=== PATIENT | female | born 1990 | race Caucasian/White ===

== ENCOUNTER → 2019-02-11 | Outpatient (CLI) | payer OTHER | LOC: LAB FS 15:07 | PROVIDERS: ATTEND Family Medicine | DX: Z34.80 Encounter for supervision of other normal pregnancy, unspecified trimester (principal); Z3A.00 Weeks of gestation of pregnancy not specified | CPT/HCPCS: 36415; 84702 ==

== ENCOUNTER 2019-05-19 14:25 | Emergency (ER) | payer BC, OTHER ==
[~2019-05-19] VITALS: Ht 165 cm; Wt 65.6 kg
--- NOTE | 2019-05-19 14:53 | ED Upper Extremity ---
General Chief Complaint: Upper Extremity Stated Complaint: RT ARM INJ Source: patient, family History of Present Illness Date Seen by Provider: May 19, 2019 Time Seen by Provider: 14:37 Initial Comments 29-year-old female presents with injury to her right forearm on the ulnar aspect. Patient was trying to grab a 5 yr old niece and lost her balance and struck the island and fell in the kitchen and sustained injury to the mid shaft right ulna area. She has pain going down into the fourth and fifth rays and also has pain going up into the elbow. No obvious deformity but clinical presentation is consistent with a fracture she denies any head or neck trauma no loss of consciousness the patient admits that she is 22 weeks . Imaging will be done with shielding. Patient has given informed consent for diagnostic and therapeutic services. No history of cardiac pulmonary GI or renal disease patient is 2 para 1 son and are with her. Onset: just prior to arrival Severity: moderate Pain/Injury Location: right forearm Method of Injury: fell Modifying Factors: Improves With Movement Allergies and Home Medications Allergies Coded Allergies: No Known Drug Allergies (Unverified , 05/19/19) Patient Home Medication List Home Medication List Reviewed: Yes Review of Systems Constitutional: other (marked pain mid shaft ulnar aspect right forearm) EENTM: no symptoms reported Respiratory: no symptoms reported Cardiovascular: no symptoms reported Gastrointestinal: no symptoms reported Genitourinary: other (22 week intrauterine ) : Yes Expected Date of Delivery: August 24, 2019 LMP: Dec 16, 2018 Musculoskeletal: joint pain, muscle weakness (right midshaft forearm) Skin: no symptoms reported Psychiatric/Neurological: Anxiety Past Vpsqmgp-Igqrnt-Xaykkl Hx Patient Social History Alcohol Use: Denies Use Recreational Drug Use: No Smoking Status: Never a Smoker 2nd Hand Smoke Exposure: No Recent Hopitalizations: No Seasonal Allergies Seasonal Allergies: Yes Past Medical History Surgeries: Yes Section, Tonsillectomy Respiratory: No Cardiac: No Neurological: No Genitourinary: No Gastrointestinal: No Musculoskeletal: No Endocrine: No HEENT: No Cancer: No Psychosocial: No Integumentary: No Blood Disorders: No Adverse Reaction/Blood Tranf: No Family Medical History Reviewed Nursing Family Hx Physical Exam Vital Signs Vital Signs - First Documented 05/19/19 14:28 Temp 36.3 Pulse 86 Resp 14 B/P (MAP) 127/60 (82) Pulse Ox 99 Capillary Refill : Height, Weight, BMI Height: '" Weight: lbs. oz. kg; BMI Method: General Appearance: WD/WN, moderate distress HEENT: PERRL/EOMI, normal ENT inspection, pharynx normal Neck: non-tender, full range of motion, supple, normal inspection Cardiovascular: regular rate, rhythm, no edema, no gallop, no JVD, no murmur Respiratory: chest non-tender, lungs clear, normal breath sounds, no re spiratory distress, no accessory muscle use Gastrointestinal: normal bowel sounds, non tender, soft, no organomegaly, no pulsatile mass Back: normal inspection, no CVA tenderness, no vertebral tenderness Shoulder: normal inspection, non-tender, no evidence of injury, normal ROM Elbow/Forearm: Right, bone tenderness, limited ROM (capillary refill less than 1 second has pain of the ulnar mid shaft area radiating to the wrist and to the elbow) Wrist: Yes bone tenderness, Yes pain (right side) Hand: Right, bone tenderness, limited ROM (secondary to pain in the mid ulna radiating to the wrist and hand and elbow) Neurologic/Tendon: motor deficit (right forearm), sensory deficit (right forearm) 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 Patient can supinate and pronate but has some discomfort open close her hand rotator wrist and 360 and then extend her elbow. FINDINGS: No acute fracture or dislocation is seen in the right forearm. Alignment is normal. There is no right elbow joint effusion. Joint spaces are preserved. IMPRESSION: 1. No acute osseous abnormality seen in the right forearm. Departure Impression Primary Impression: Contusion, forearm and elbow Disposition: 01 HOME, SELF-CARE Condition: Stable Departure-Patient Inst. Decision time for Depature: 15:39 Referrals: KIKE RODRIGUEZ MD (PCP/Family) Primary Care Physician Patient Instructions: Contusion (DC), Muscle Strain (DC) DEMETRIO ORTEGA DO May 19, 2019 14:53
--- NOTE | 2019-05-19 15:17 | Diagnostic Imaging Report ---
INDICATION: Right forearm trauma. TECHNIQUE: Two views of the right forearm. COMPARISON: None FINDINGS: No acute fracture or dislocation is seen in the right forearm. Alignment is normal. There is no right elbow joint effusion. Joint spaces are preserved. IMPRESSION: 1. No acute osseous abnormality seen in the right forearm. Dictated by: Dictated on workstation # [id number]
[2019-05-19 15:47] VITALS: BP 113/54
== END 2019-05-19 15:48 | disposition home or self-care (01) ==
LOC: EDUNIT# 14:25 → ER FS 14:26
DX: S50.11XA Contusion of right forearm, initial encounter (principal); Z90.89 Acquired absence of other organs; W01.198A Fall on same level from slipping, tripping and stumbling with subsequent striking against other object, initial encounter; Y92.000 Kitchen of unspecified non-institutional (private) residence as the place of occurrence of the external cause
CPT/HCPCS: 73090

== ENCOUNTER → 2019-07-01 | Outpatient (CLI) | payer BC ==
[2019-07-01 10:35] LABS: HEMATOCRIT 36 % (35-52); HEMOGLOBIN 11.7 G/DL (11.5-16.0); MEAN CORPUSCULAR HEMOGLOBIN 30 PG (25-34); MEAN CORPUSCULAR HGB CONC 33 G/DL (32-36); MEAN CORPUSCULAR VOLUME 93 FL (80-99); WHITE BLOOD COUNT 10.6 10^3/uL (4.3-11.0)
[2019-07-01 10:36] LABS: MEAN PLATELET VOLUME 9.8 FL (7.4-10.4); PLATELET COUNT 285 10^3/uL (130-400)
[2019-07-01 10:37] LABS: BASOPHILS % (AUTO) 0 % (0-10); EOSINOPHILS % (AUTO) 0 % (0-10); LYMPHOCYTES # (AUTO) 1.8 X 10^3 (1.0-4.0); LYMPHOCYTES % (AUTO) 17 % (12-44); MONOCYTES # (AUTO) 0.5 X 10^3 (0.0-1.0); MONOCYTES % (AUTO) 4 % (0-12); NEUTROPHILS # (AUTO) 8.3 X 10^3 (1.8-7.8); NEUTROPHILS % (AUTO) 78 % (42-75)
== END ==
LOC: LAB FS 09:24
PROVIDERS: ATTEND Family Medicine
DX: Z34.80 Encounter for supervision of other normal pregnancy, unspecified trimester (principal); Z3A.00 Weeks of gestation of pregnancy not specified
CPT/HCPCS: 36415; 82950; 85025; 86780

== ENCOUNTER → 2019-07-17 | Outpatient (CLI) | payer BC | LOC: LAB FS 08:52 | PROVIDERS: ATTEND Family Medicine | DX: R73.09 Other abnormal glucose (principal); Z53.8 Procedure and treatment not carried out for other reasons | CPT/HCPCS: 36415; 82951; 82952 ==

== ENCOUNTER 2019-09-11 12:23 | Outpatient (RCR) | payer BC ==
[~2019-09-11] VITALS: Ht 162.6 cm; Wt 67.7 kg
[2019-09-11] MEDS ORDERED: CETI10TA21 PO (14:31)
[2019-09-11] MEDS ORDERED: METF-399 PO (14:31)
[2019-09-11] MEDS ORDERED: SERT50TA9 PO (14:31)
[2019-09-11] MEDS ORDERED: MONT10TA26 PO (14:31)
[2019-09-11] MEDS ORDERED: ONDA4TAB11 PO (14:31)
== END 2019-09-11 14:34 | disposition home or self-care (01) ==
LOC: PREOP 12:23
PROVIDERS: ATTEND Obstetrics & Gynecology
DX: Z01.818 Encounter for other preprocedural examination (principal); Z11.59 Encounter for screening for other viral diseases
CPT/HCPCS: 87635

== ENCOUNTER 2019-09-13 06:59 | Inpatient (IN) | payer BC, MEDICAID ==
[2019-09-13] VITALS (13 sets, daily range): BP systolic 98–144; BP diastolic 66–88
[~2019-09-13] VITALS: Ht 162.6 cm; Wt 67.6 kg
[~2019-09-13 06:59] MED LIST: CETI10TA21 PO; METF-399 PO; MONT10TA26 PO; ONDA4TAB11 PO; SERT50TA9 PO
--- NOTE | 2019-09-13 07:07 | NUR ---
JANAY MANN presented to unit via AMB from HOME, accompanied by SPOUSE, with c/o REPEAT . JANAY MANN weighed, gowned, voided, and to bed. EFHM and TOCO applied, VS taken. JANAY MANN oriented to bed controls, call light, TV, heat, and A/C controls.
[2019-09-13] MEDS ORDERED: ceFAZolin INJECTION 1,000 MG in WATER (STERILE) FOR INJECTION 10 ML IV ONE (07:15)
--- NOTE | 2019-09-13 07:25 | NUR ---
INFORMED CONSENT FOR SECTION SIGNED/WITNESSED.
--- NOTE | 2019-09-13 07:26 | History & Physical-OB ---
OB - Chief Complaint & HPI Date/Time Date of Admission: Date of Admission: September 13, 2019 at 06:59 Date seen by a Provider: September 13, 2019 Time Seen by a Provider: 08:10 Chief Complaint/History OB-Reason for Admission/Chief: Section Hx : 4 Hx Para: 1 Expected Date of Delivery: September 22, 2019 Gestational Age in Weeks: 38 Gestational Age in Days: 5 Indication for : desires repeat Admission Nurse Assessment Rev: Yes History of Labs see prenatals Allergies and Home Medications Allergies Coded Allergies: No Known Drug Allergies (Unverified , 05/19/19) Home Medications Cetirizine HCl 10 Mg Tablet, 10 MG PO DAILY, (Reported) Metformin HCl 1,000 Mg Tablet, 1,000 MG PO BID, (Reported) Montelukast Sodium 10 Mg Tablet, 10 MG PO HS, (Reported) Ondansetron 4 Mg Tab.rapdis, 4 MG PO TID PRN for NAUSEA/VOMITING, (Reported) Sertraline HCl 50 Mg Tablet, 50 MG PO HS, (Reported) Patient Home Medication List Home Medication List Reviewed: Yes OB - History Hx of Present Care: Yes Ultrasounds: Normal mid trimester US Obstetrical Complications: Gestational Diabetes (on metformin) Medical Complications: None Delivery History Adverse Rxn to Tranfusion: No Patient Past Medical History n/a Social History/Family History 2nd Hand Smoke Exposure: No OB - Admission Exam Physical Exam HEENT: NCAT Heart: Rhythm Normal Lungs: Clear Abdomen: Gravid Extremities: Normal Reflexes: Normal Cervical Dilatation: 1cm Effacement: 50% Station: -3 Membranes: Intact Heart Rate: 130's Accelerations: Accelerations Present Decelerations: No Decelerations Short Term Variability: Present 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
[2019-09-13] MEDS ORDERED: OXYTOCIN PRE-MIX DRIP 500 ML IV SCH (07:27)
[2019-09-13] MEDS ORDERED: TETANUS,DIPTH,PERTUSS P/F (BOOSTRIX) 0.5 ML VIAL IM SCH (07:30)
[2019-09-13] MEDS ORDERED: MEASLES,MUMPS,RUBELLA 1 EA INJ SC SCH (07:30)
[2019-09-13] MEDS ORDERED: ONDANSETRON 4 MG/2 ML (SDV) Z0FRAN IVP PRN (07:30)
--- NOTE | 2019-09-13 07:34 | Discharge Inst-Women's Service ---
Discharge Inst-Women's Serv Depart Medication/Instructions New, Converted or Re-Newed RX: RX on Chart Final Diagnosis POD 2 RLTCS Problems Reviewed?: Yes Consults/Follow Up Additional Follow Up: Yes Orders/Referrals Dr. Lopez in 7-[address] Thurston in 6 weeks Activity Activity: Activity as Tolerated Driving Instructions: No Driving for 1 Week NO SMOKING: NO SMOKING Nothing Inside Vagina: No Douching, No [place], No Tampons Diet Discharge Diet: No Restrictions Symptoms to Report to : Bleeding Excessive, Pain Increased, Fever Over 101 Degrees F, Vaginal Bleeding Increase, Questions/Concerns For Any Problems or Questions: Contact Your Physician Skin/Wound Care Infection Signs and Symptoms: Increased Redness, Foul Odor of Wound, Increased Drainage, Skin Itchy or Has a Rash, Increased Swelling, Temperature Above 101 F Operative Area Clean and Dry: Keep Incision Clean/Dry Stitches/[place]/Dermabond: Dermabond, Care of Stitches Bathing Instructions: MICHAEL Martin DO September 13, 2019 07:34
[2019-09-13] MEDS ORDERED: HYDR-83 PO (07:36)
[2019-09-13] MEDS ORDERED: IBUP-844 PO (07:36)
[2019-09-13] MEDS ORDERED: DCS100C PO (07:36)
--- NOTE | 2019-09-13 07:37 | NUR ---
MRSA SWAB PERFORMED.
--- NOTE | 2019-09-13 07:37 | NUR ---
FSBS 81 MGS/DL.
[2019-09-13] MEDS: LACTATED RINGERS 1,000 ML IV SCH ×2 (07:47→08:23)
--- NOTE | 2019-09-13 07:47 | NUR ---
IV STARTED. BLOOD DRAWN FOR LABS. SEE INTERVENTION.
--- NOTE | 2019-09-13 07:50 | NUR ---
EMI HANLEY GOVERNMENT CLERK HERE TO TALK TO PT.
--- NOTE | 2019-09-13 07:55 | NUR ---
COVID TEST NEGATIVE.
[2019-09-13] MEDS ORDERED: FAMOTIDINE 20MG/2ML IV (PEPCID) ONE (08:00)
[2019-09-13] MEDS ORDERED: METOCLOPRAMIDE INJ 10 MG/2 ML (REGLAN) ONE (08:00)
[2019-09-13] MEDS ORDERED: CITRIC ACID/SOB CIT (BICITRA) 30 ML UDC ONE (08:00)
[2019-09-13] MEDS ORDERED: WATER (STERILE) FOR INJECTION 10 ML ONE (08:05)
[2019-09-13] MEDS ORDERED: ceFAZolin INJECTION 1,000 MG ONE (08:05)
[2019-09-13 08:08] LABS: BASOPHILS % (AUTO) 0 % (0-10); EOSINOPHILS # (AUTO) 0.1 10^3/uL (0.0-0.3); EOSINOPHILS % (AUTO) 1 % (0-10); HEMATOCRIT 37 % (35-52); HEMOGLOBIN 12.5 G/DL (11.5-16.0); LYMPHOCYTES # (AUTO) 1.9 X 10^3 (1.0-4.0); LYMPHOCYTES % (AUTO) 23 % (12-44); MEAN CORPUSCULAR HGB CONC 34 G/DL (32-36); MEAN CORPUSCULAR VOLUME 90 FL (80-99); MEAN PLATELET VOLUME 10.9 FL (7.4-10.4); MONOCYTES # (AUTO) 0.7 X 10^3 (0.0-1.0); MONOCYTES % (AUTO) 9 % (0-12); NEUTROPHILS # (AUTO) 5.5 X 10^3 (1.8-7.8); NEUTROPHILS % (AUTO) 67 % (42-75); PLATELET COUNT 234 10^3/uL (130-400); RED CELL DISTRIBUTION WIDTH 14.2 % (10.0-14.5); WHITE BLOOD COUNT 8.2 10^3/uL (4.3-11.0)
[2019-09-13 08:09] LABS: MEAN CORPUSCULAR HEMOGLOBIN 30 PG (25-34)
--- NOTE | 2019-09-13 08:23 | NUR ---
PABLO READING DATA COMMUNICATIONS ANALYST IN TO SEE PT.
[2019-09-13] MEDS ORDERED: ONDANSETRON 4 MG/2 ML (SDV) Z0FRAN ONE (08:24)
[2019-09-13] MEDS ORDERED: OXYTOCIN PRE-MIX DRIP 1,000 ML IV ONE (08:24)
[2019-09-13] MEDS ORDERED: fentaNYL INJECTION 100 MCG/2 ML AMP ONE (08:25)
--- NOTE | 2019-09-13 08:27 | NUR ---
PREOP MEDS GIVEN.
--- NOTE | 2019-09-13 08:41 | NUR ---
EFM OFF. AUDIT MGR HERE. UP TO THE BATHROOM.
--- NOTE | 2019-09-13 08:44 | NUR ---
TO [facility]OR AMBULATORY IN STABLE CONDITION ACC BY PROCESSING ENGINEER FOR A REPEAT SECTION BY DR. LÓPEZ.
[2019-09-13] MEDS ORDERED: KETOROLAC 30 MG/ML VIAL ONE (09:12)
[2019-09-13] MEDS ORDERED: BUPIVACAINE 0.25% 30 ML (SENSORCAINE) VIAL ONE (09:13)
--- OUTSIDE RECORDS SUMMARY | 2019-09-13 09:15 | XMS REPORT ---
Author Author Gracie Galicia Organization [facility] Address [address] [place] [address] Care Team Providers Care Transit Bus Operator Name Role Phone ADEBAYO Galicia Unavailable PROBLEMS Type Condition ICD9-CM Code VNP70-PK Code Onset Dates Condition S tatus SNOMED Code Problem Depression, unspecified depression type F32.9 Active 49725940 Problem Fibrocystic breast changes, unspecified laterality N60.19 Active 18746716 Problem Allergic rhinitis J30.9 Active 61 385154 Problem Seasonal allergic rhinitis, unspecified trigger J3 0.2 Active [id number] ALLERGIES No Information ENCOUNTERS Encounter Location Date Diagnosis [facility] WALK IN [facility] [address] [facility] [place] [address] May, Influenza-like syndrome J11. 1 ; Exposure to influenza Z20.828 ; Sore throat J02.9 and Fever R50.[address] [place] [address] Apr, Supervision of other normal Z34.[address] [place] [address] Apr, Supervision of other normal Z34.80 [facility] [address] [id number] [place] [address] Apr, [address] [place] [address] Mar, Supervision of other normal Z34.80 and 15 weeks gestation of Z3A.[address] [place] [address] Mar, [address] [place] [address] Feb, Supervision of other normal Z34.80 and 11 weeks gestation of Z3A.11 [facility] [address] [place] [address] Feb, [facility] [address] [place] [address] Jan, [facility] [address] [place] [address] Jan, [facility] [address] [place] [address] Jan, Supervision of other normal Z34.80 and with uncertain date of last menstrual period in first trimester, antepartum Z34.91 [facility] [address] [place] [address] Jan, Supervision of other normal Z34.80 [facility] [address] [place] [address] Jan, Supervision of other normal Z34.80 and with uncertain date of last menstrual period in first trimester, antepartum Z34.91 [facility] [address] [place] [address] Jan, [facility] [address] [place] [address] Jan, [facility] [address] [place] [address] Dec, Less than 8 weeks gestation of Z3A.01 [facility] [address] [place] [address] Dec, Less than 8 weeks gestation of Z3A.01 and Acute sinusitis, unspecified J01.90 [facility] [address] [place] [address] Dec, Acute sinusitis, unspecified J01.90 and Other specified bacterial agents as the cause of diseases classified elsewhere B96.89 [facility] [address] [place] [address] Nov, [facility] [address] [facility] [place] [address] Nov, [facility] [address] [place] [address] Oct, [facility] [address] [facility] [place] [address] Sep, Fibrocystic breast changes, unspecified laterality N60.19 [facility] [address] [facility] [place] [address] Sep, Nipple pain N64.4 [facility] [address] [place] [address] Sep, Nipple pain N64.4 [facility] [address] [facility] [place] [address] August, Fungal infection of skin B36 .9 and Nipple pain N64.4 [facility] [address] [facility] [place] [address] August, Seasonal allergic rhinitis, unspecified trigger J30.2 and Weight gain R63.5 [facility] [address] [place] [address] August, [facility] [address] [place] [address] August, Allergic rhinitis J30.9 [facility] [address] [place] [address] Jul, Pre-employment health screen ing examination Z02.1 [facility] [address] [place] [address] Jul, Allergic rhinitis J30.9 [facility] [address] [place] [address] [facility] [id number] [place] [address] Feb, Abdomen enlarged R19.8 [facility] [address] [id number] [place] [address] 14 Jul, 2014 [facility] [address] [id number] [place] [address] Jul, [facility] [address] [id number] [place] [address] Mar, [facility] [place] [address] [facility] [place] [place] [address] Mar, [facility] [place] [address] [facility] [place] [address] Feb, 14 [facility] [address] [id number] [place] [address] Feb, [facility] [address] [id number] [place] [address] Dec, [facility] [address] [id number] [place] [address] Dec, [facility] [address] [id number] [place] [address] Dec, [facility] [address] [id number] [place] [address] Dec, [facility] [address] [id number] [place] [address] Dec, [facility] [address] [id number] [place] [address] Dec, [facility] [address] [id number] [place] [address] Dec, [facility] [address] [id number] [place] [address] Oct, [facility] [address] [id number] [place] [address] Oct, [facility] [address] [id number] [place] [address] August, [facility] [address] [id number] [place] [address] August, [facility] [place] [address] [place] [address] Jul, [facility] [address] [id number] [place] [address] Jul, [facility] [address] [id number] [place] [address] Jun, [facility] [id number] [place] [address] Jun, [facility] [address] [id number] [place] [address] Jun, [facility] [address] [id number] [place] [address] Jan, [facility] [address] [id number] [place] [address] Jan, [facility] [id number] [place] [address] Jan, [facility] [address] [id number] [place] [address] 14 Dec, 2011 [facility] [address] [id number] [place] [address] 13 Dec, 2011 [facility] [address] [id number] [place] [address] 11 Dec, 2011 [facility] [address] [id number] [place] [address] 07 Dec, 2011 [facility] [address] [id number] [place] [address] 05 Dec, 2011 [facility] [address] [id number] [place] [address] Dec, [facility] [id number] [place] [address] Nov, [facility] [address] [id number] [place] [address] Nov, [facility] [id number] [place] [address] Oct, [facility] [address] [id number] [place] [address] 13 Jun, 2011 [facility] [address] [id number] [place] [address] 12 Jun, 2011 [facility] [address] [id number] [place] [address] 10 Jun, 2011 [facility] [id number] [place] [address] 07 Jun, 2011 [facility] [address] [id number] [place] [address] Feb, [facility] [id number] [place] [address] Feb, [facility] [address] [id number] [place] [address] 15 Jun, 2010 IMMUNIZATIONS No Known Immunizations SOCIAL HISTORY Never Assessed REASON FOR VISIT PLAN OF CARE VITAL SIGNS Height 64 in 2013-08-05 Weight 104 lbs 2013-08-05 Temperature 98.6 degrees Fahrenheit 2013-08-05 Heart Rate 76 bpm 2013-08-05 Respiratory Rate 16 2013-08-05 Blood pressure systolic 114 mmHg 2013-08-05 Blood pressure diastolic 64 mmHg 2013-08-05 MEDICATIONS No Known Medications RESULTS No Results PROCEDURES No Known procedures INSTRUCTIONS MEDICATIONS ADMINISTERED No Known Medications MEDICAL (GENERAL) HISTORY Type Description Date Medical History depression Medical History seasonal allergies Surgical History tonsillectomy and adenoidectomy Surgical History section Surgical History dilatation and curettage Surgical History dental / child Hospitalization History see surgeries Hospitalization History childbirth only
--- OUTSIDE RECORDS SUMMARY | 2019-09-13 09:15 | XMS REPORT ---
Author Author Gracie Harris Organization [facility] Address [address] [place] [address] Care Team Providers Care Campaign Director Name Role Phone KURTIS Harris Unavailable PROBLEMS Type Condition ICD9-CM Code LLL09-OA Code Onset Dates Condition S tatus SNOMED Code Problem Depression, unspecified depression type F32.9 Active 75707493 Problem Fibrocystic breast changes, unspecified laterality N60.19 Active 17792630 Problem Allergic rhinitis J30.9 Active 61 335516 Problem Seasonal allergic rhinitis, unspecified trigger J3 0.2 Active 032034416 ALLERGIES No Information ENCOUNTERS Encounter Location Date Diagnosis [address] [id number], [place] [address] Jun, Acute non-recurrent maxillar y sinusitis J01.00 [facility] [address] [id number], [place] [address] 02 May, 2019 Influenza-like syndrome J11. 1 ; Exposure to influenza Z20.828 ; Sore throat J02.9 and Fever R50.[address] [id number], [place] [address] Apr, Supervision of other normal Z34.[address] [id number], [place] [address] Apr, Supervision of other normal Z34.80 [facility] [address] [facility] [id number] [address] [place] [address] Apr, [address] [id number], [place] [address] Mar, Supervision of other normal Z34.80 and 15 weeks gestation of Z3A.15 [facility] [address] [id number] [place] [address] Mar, [facility] [address] [id number] [place] [address] Feb, Supervision of other normal Z34.80 and 11 weeks gestation of Z3A.11 [facility] [address] [id number] [place] [address] Feb, [facility] [address] [id number] [place] [address] Jan, [facility] [address] [id number] [place] [address] Jan, [facility] [address] [id number] [place] [address] Jan, Supervision of other normal Z34.80 and with uncertain date of last menstrual period in first trimester, antepartum Z34.91 [facility] [address] [id number] [place] [address] Jan, Supervision of other normal Z34.80 [facility] [address] [id number] [place] [address] Jan, Supervision of other normal Z34.80 and with uncertain date of last menstrual period in first trimester, antepartum Z34.91 [facility] [address] [id number] [place] [address] Jan, [facility] [address] [id number] [place] [address] Jan, [facility] [address] [id number] [place] [address] Dec, Less than 8 weeks gestation of Z3A.01 [facility] [address] [id number] [place] [address] Dec, Less than 8 weeks gestation of Z3A.01 and Acute sinusitis, unspecified J01.90 [facility] [address] [id number] [place] [address] Dec, Acute sinusitis, unspecified J01.90 and Other specified bacterial agents as the cause of diseases classified elsewhere B96.89 [facility] [address] [id number] [place] [address] Nov, [facility] [address] [id number] [place] [address] Nov, [facility] [address] [id number] [place] [address] Oct, [facility] [address] [id number] [place] [address] Sep, Fibrocystic breast changes, unspecified laterality N60.19 [facility] [address] 340[address] [id number] [place] [address] Sep, Nipple pain N64.4 [facility] [address] 340[address] [id number] [place] [address] Sep, Nipple pain N64.4 [facility] [address] [id number] [place] [address] August, Fungal infection of skin B36 .9 and Nipple pain N64.4 [facility] [address] [id number] [place] [address] August, Seasonal allergic rhinitis, unspecified trigger J30.2 and Weight gain R63.5 [facility] [address] 340[address] [id number] [place] [address] August, [facility] [address] [id number] [place] [address] August, Allergic rhinitis J30.9 [facility] [address] [id number] [place] [address] Jul, Pre-employment health screen ing examination Z02.1 [facility] [address] [id number] [place] [address] Jul, Allergic rhinitis J30.9 [facility] [address] [place] [address] [facility] [id number] [place] [address] 08 Feb, 2018 Abdomen enlarged R19.8 [facility] [address] [facility] [id number] [address] [place] [address] 14 Jul, 2014 [facility] [address] [facility] [id number] [address] [place] [address] Jul, [facility] [address] [facility] [id number] [address] [place] [address] Mar, [facility] [place] [address] [place] [address] Mar, 14 [facility] [address] [place] [address] Feb, 14 [facility] [address] [facility] [id number] [address] [place] [address] Feb, [facility] [address] [facility] [id number] [address] [place] [address] Dec, [facility] [address] [facility] [id number] [address] [place] [address] 23 Dec, 2013 [facility] [address] [facility] [id number] [address] [place] [address] 22 Dec, 2013 [facility] [address] [id number] [address] [place] [address] 18 Dec, 2013 [facility] [address] [id number] [address] [place] [address] 18 Dec, 2013 [facility] [address] [facility] [id number] [address] [place] [address] Dec, [facility] [address] [facility] [id number] [address] [place] [address] Dec, [facility] [address] [id number] [address] [place] [address] Oct, [facility] [address] [id number] [address] [place] [address], [place] [address] Oct, [facility] [address] [id number] [address] [place] [address], [place] [address] August, [facility] [address] [id number] [address] [place] [address], [place] [address] August, [facility] [place] [address] [facility] [place] [address] Jul, [facility] [address] [id number] [address] [place] [address], [place] [address] Jul, [facility] [address] [id number] [address] [place] [address], [place] [address] Jun, [facility] [address] [id number] [address] [place] [address], [place] [address] Jun, [facility] [address] [id number] [address] [place] [address], [place] [address] Jun, [facility] [address] [id number] [address] [place] [address], [place] [address] Jan, [facility] [address] [id number] [address] [place] [address], [place] [address] Jan, [facility] [address] [id number] [address] [place] [address], [place] [address] 09 Jan, 2012 [facility] [address] [id number] [address] [place] [address] 14 Dec, 2011 [facility] [address] [id number] [address] [place] [address], [place] [address] 13 Dec, 2011 [facility] [address] [id number] [address] [place] [address], [place] [address] 11 Dec, 2011 [facility] [address] [id number] [address] [place] [address], [place] [address] 07 Dec, 2011 [facility] [address] [id number] [address] [place] [address] 05 Dec, 2011 [facility] [address] [id number] [address] [place] [address] Dec, [facility] [address] [id number] [address] [place] [address] Nov, [facility] [address] [id number] [address] [place] [address] Nov, [facility] [address] [id number] [address] [place] [address] Oct, [facility] [address] [id number] [address] [place] [address] Jun, [facility] [address] [id number] [address] [place] [address] Jun, [facility] [address] [id number] [address] [place] [address] Jun, [facility] [address] [id number] [address] [place] [address] Jun, [facility] [address] [id number] [address] [place] [address] Feb, [facility] [address] [id number] [address] [place] [address] Feb, [facility] [address] [id number] [address] [place] [address] 15 Jun, 2010 IMMUNIZATIONS No Known Immunizations SOCIAL HISTORY Never Assessed REASON FOR VISIT PLAN OF CARE VITAL SIGNS MEDICATIONS No Known Medications RESULTS No Results PROCEDURES Procedure Date Ordered Result Body Site COMPLETE CBC W/AUTO DIFF WBC Jan 09, 2014 ASSAY THYROID STIM HORMONE Jan 09, 2014 LIPID PANEL Jan 09, 2014 COMPREHEN METABOLIC PANEL Jan 09, 2014 VENIPUNCT, ROUTINE* Jan 09, 2014 INSTRUCTIONS MEDICATIONS ADMINISTERED No Known Medications MEDICAL (GENERAL) HISTORY Type Description Date Medical History depression Medical History seasonal allergies Surgical History tonsillectomy and adenoidectomy Surgical History section Surgical History dilatation and curettage Surgical History dental / child Hospitalization History see surgeries Hospitalization History childbirth only
--- OUTSIDE RECORDS SUMMARY | 2019-09-13 09:15 | XMS REPORT ---
Author Author Gracie HUDSON Organization [facility] Address [address] [place] [address] Care Team Providers Care [employer] Wiring Technician Name Role Phone RADHA HUDSON Unavailable PROBLEMS Type Condition ICD9-CM Code LYV04-YM Code Onset Dates Condition S tatus SNOMED Code Problem Depression, unspecified depression type F32.9 Active 42565374 Problem Fibrocystic breast changes, unspecified laterality N60.19 Active 57359629 Problem Allergic rhinitis J30.9 Active 61 600086 Problem Seasonal allergic rhinitis, unspecified trigger J3 0.2 Active 553364947 ALLERGIES No Information ENCOUNTERS Encounter Location Date Diagnosis [facility] IN [facility] [address] [facility] [address] [place] [address] 02 May, 2019 Influenza-like syndrome J11. 1 ; Exposure to influenza Z20.828 ; Sore throat J02.9 and Fever R50.[address] [place] [address] Apr, Supervision of other normal Z34.80 [address] [place] [address] Apr, Supervision of other normal Z34.80 [facility] [address] [facility] [place] [address] Apr, [address] [place] [address] Mar, Supervision of other normal Z34.80 and 15 weeks gestation of Z3A.[address] [place] [address] Mar, [address] [place] [address] Feb, Supervision of other normal Z34.80 and 11 weeks gestation of Z3A.11 [facility] [address] [place] [address] Feb, [facility] [address] [place] [address] Jan, [facility] [address] [place] [address] Jan, [facility] [address] [place] [address] Jan, Supervision of other normal Z34.80 and with uncertain date of last menstrual period in first trimester, antepartum Z34.91 [facility] [address] [place] [address] Jan, Supervision of other normal Z34.80 [facility] [address] [place] [address] Jan, Supervision of other normal Z34.80 and with uncertain date of last menstrual period in first trimester, antepartum Z34.91 [facility] [address] [place] [address] Jan, [facility] [address] [place] [address] Jan, [facility] [address] [place] [address] Dec, Less than 8 weeks gestation of Z3A.01 [facility] [address] [place] [address] Dec, Less than 8 weeks gestation of Z3A.01 and Acute sinusitis, unspecified J01.90 [facility] [address] [place] [address] Dec, Acute sinusitis, unspecified J01.90 and Other specified bacterial agents as the cause of diseases classified elsewhere B96.89 [facility] [address] [place] [address] Nov, [facility] [address] [place] [address] Nov, [facility] [address] [place] [address] Oct, [facility] [address] [place] [address] Sep, Fibrocystic breast changes, unspecified laterality N60.19 [facility] [address] [place] [address] Sep, Nipple pain N64.4 [facility] [address] [place] [address] Sep, Nipple pain N64.4 [facility] [place] [address] [place] [address] August, Fungal infection of skin B36 .9 and Nipple pain N64.4 [facility] [address] [place] [address] August, Seasonal allergic rhinitis, unspecified trigger J30.2 and Weight gain R63.5 [facility] [address] [place] [address] August, [facility] [address] [place] [address] August, Allergic rhinitis J30.9 [facility] [address] [place] [address] Jul, Pre-employment health screen ing examination Z02.1 [facility] [address] [place] [address] Jul, Allergic rhinitis J30.9 [facility] [address] [place] [address] [facility] [place] [id number] [place] [address] Feb, Abdomen enlarged R19.8 [facility] [address] [id number] [place] [address] 14 Jul, 2014 [facility] [address] [id number] [place] [address] Jul, [facility] [address] [id number] [place] [address] Mar, [facility] [place] [address] [place] [address] Mar, [facility] [place] [address] [place] [address] Feb, 14 [facility] [address] [id number] [place] [address] Feb, [facility] [address] [id number] [place] [address] Dec, [facility] [address] [id number] [place] [address] Dec, [facility] [address] [id number] [place] [address] Dec, [facility] [address] [id number] [place] [address] Dec, [facility] [address] [id number] [place] [address] Dec, [facility] [address] [id number] [place] [address] Dec, [facility] [address] [id number] [place] [address] Dec, [facility] [address] [id number] [place] [address] Oct, [facility] [address] [id number] [place] [address] Oct, [facility] [address] [id number] [place] [address] August, [facility] [address] [id number] [place] [address] August, [facility] [place] [address] [facility] [place] [address] Jul, [facility] [address] [id number] [place] [address] Jul, [facility] [address] [id number] [place] [address] Jun, [facility] [id number] [place] [address] Jun, [facility] [address] [id number] [place] [address] Jun, [facility] [address] [id number] [place] [address] Jan, [facility] [address] [id number] [place] [address] Jan, [facility] [id number] [place] [address] Jan, [facility] [address] [id number] [place] [address] 14 Dec, 2011 [facility] [address] [id number] [place] [address] 13 Dec, 2011 [facility] [address] [id number] [place] [address] 11 Dec, 2011 [facility] [address] [id number] [place] [address] 07 Dec, 2011 [facility] [address] [id number] [place] [address] 05 Dec, 2011 [facility] [address] [id number] [place] [address] Dec, [facility] [id number] [place] [address] Nov, [facility] [address] [id number] [place] [address] Nov, [facility] [id number] [place] [address] Oct, [facility] [address] [id number] [place] [address] 13 Jun, 2011 [facility] [address] [id number] [place] [address] 12 Jun, 2011 [facility] [address] [id number] [place] [address] Jun, [facility] [id number] [place] [address] Jun, [facility] [address] [id number] [place] [address] Feb, [facility] [id number] [place] [address] Feb, [facility] [address] [id number] [place] [address] Jun, IMMUNIZATIONS No Known Immunizations SOCIAL HISTORY Never Assessed REASON FOR VISIT PLAN OF CARE VITAL SIGNS Height 64 in 2013-08-28 Weight 108.8 lbs 2013-08-28 Temperature 99.5 degrees Fahrenheit 2013-08-28 Heart Rate 88 bpm 2013-08-28 Respiratory Rate 18 2013-08-28 Blood pressure systolic 118 mmHg 2013-08-28 Blood pressure diastolic 58 mmHg 2013-08-28 MEDICATIONS No Known Medications RESULTS No Results PROCEDURES No Known procedures INSTRUCTIONS MEDICATIONS ADMINISTERED No Known Medications MEDICAL (GENERAL) HISTORY Type Description Date Medical History depression Medical History seasonal allergies Surgical History tonsillectomy and adenoidectomy Surgical History section Surgical History dilatation and curettage Surgical History dental / child Hospitalization History see surgeries Hospitalization History childbirth only
--- OUTSIDE RECORDS SUMMARY | 2019-09-13 09:15 | XMS REPORT ---
Author Author Gracie Mei Organization [facility] Address [address] [place] [address] Care Team Providers Care Compliance Reviewer Name Role Phone YANCI Mei Unavailable PROBLEMS Type Condition ICD9-CM Code XDX42-QU Code Onset Dates Condition S tatus SNOMED Code Problem Depression, unspecified depression type F32.9 Active 51749950 Problem Fibrocystic breast changes, unspecified laterality N60.19 Active 43735678 Problem Allergic rhinitis J30.9 Active 61 430914 Problem Seasonal allergic rhinitis, unspecified trigger J3 0.2 Active 405316738 ALLERGIES No Information ENCOUNTERS Encounter Location Date Diagnosis [address] [place] [id number] [address] Jun, Acute non-recurrent maxillar y sinusitis J01.00 [facility] [address] 340 [id number] [address] 02 May, 2019 Influenza-like syndrome J11. 1 ; Exposure to influenza Z20.828 ; Sore throat J02.9 and Fever R50.[address] [id number], [place] [address] Apr, Supervision of other normal Z34.[address] 340[id number], [place] [address] Apr, Supervision of other normal Z34.80 [facility] [address] [facility] [id number] [address] [place] [address] Apr, [address] [id number], [place] [address] Mar, Supervision of other normal Z34.80 and 15 weeks gestation of Z3A.15 [facility] [address] [id number] [place] [address] Mar, [facility] [address] [id number] [place] [address] Feb, Supervision of other normal Z34.80 and 11 weeks gestation of Z3A.11 [facility] [address] [id number] [place] [address] Feb, [facility] [address] [id number] [place] [address] Jan, [facility] [address] [id number] [place] [address] Jan, [facility] [address] [id number] [place] [address] Jan, Supervision of other normal Z34.80 and with uncertain date of last menstrual period in first trimester, antepartum Z34.91 [facility] [address] [id number] [place] [address] Jan, Supervision of other normal Z34.80 [facility] [address] [id number] [place] [address] Jan, Supervision of other normal Z34.80 and with uncertain date of last menstrual period in first trimester, antepartum Z34.91 [facility] [address] [id number] [place] [address] Jan, [facility] [address] [id number] [place] [address] Jan, [facility] [address] [id number] [place] [address] Dec, Less than 8 weeks gestation of Z3A.01 [facility] [address] [id number] [place] [address] Dec, Less than 8 weeks gestation of Z3A.01 and Acute sinusitis, unspecified J01.90 [facility] [address] 340B [id number] [place] [address] Dec, Acute sinusitis, unspecified J01.90 and Other specified bacterial agents as the cause of diseases classified elsewhere B96.89 [facility] [address] [id number] [place] [address] Nov, [facility] [address] 340[address] [id number] [place] [address] Nov, [facility] [address] 340[address] [id number] [place] [address] Oct, [facility] [address] 340[address] [id number] [place] [address] Sep, Fibrocystic breast changes, unspecified laterality N60.19 [facility] [address] 340B [id number] [place] [address] Sep, Nipple pain N64.4 [facility] [address] 340B [id number] [place] [address] Sep, Nipple pain N64.4 [facility] [address] [id number] [place] [address] August, Fungal infection of skin B36 .9 and Nipple pain N64.4 [facility] [address] 340B [id number] [place] [address] August, Seasonal allergic rhinitis, unspecified trigger J30.2 and Weight gain R63.5 [facility] [address] 340B [id number] [place] [address] August, [facility] [address] [id number] [place] [address] August, Allergic rhinitis J30.9 [facility] [address] [id number] [place] [address] Jul, Pre-employment health screen ing examination Z02.1 [facility] [address] [id number] [place] [address] Jul, Allergic rhinitis J30.9 [facility] [address] [place] [address] [facility] [id number] [place] [address] 08 Feb, 2018 Abdomen enlarged R19.8 [facility] [address] [facility] [id number] [address] [place] [address] 14 Jul, 2014 [facility] [address] [facility] [id number] [address] [place] [address] Jul, [facility] [address] [facility] [id number] [address] [place] [address] Mar, [facility] [place] [address] [place] [address] Mar, 14 [facility] [address] [place] [address] Feb, 14 [facility] [address] [facility] [id number] [address] [place] [address] Feb, [facility] [address] [facility] [id number] [address] [place] [address] Dec, [facility] [address] [facility] [id number] [address] [place] [id number] 23 Dec, 2013 [facility] [address] [facility] [id number] [address] [place] [address] 22 Dec, 2013 [facility] [address] [id number] [address] [place] [address] 18 Dec, 2013 [facility] [address] [id number] [address] [place] [phone] 18 Dec, 2013 [facility] [address] [facility] [id number] [address] [place] [address] Dec, [facility] [address] [facility] [id number] [address] [place] [address] Dec, [facility] [address] [id number] [address] [place] [address] Oct, [facility] [address] [id number] [address] [place] [address], [place] [address] Oct, [facility] [address] [id number] [address] [place] [address], [place] [address] August, [facility] [address] [id number] [address] [place] [address], [place] [address] August, [facility] [place] [address] [facility] [address] Jul, [facility] [address] [id number] [address] [place] [address], [place] [address] Jul, [facility] [address] [id number] [address] [place] [address], [place] [address] Jun, [facility] [address] [id number] [address] [place] [address], [place] [address] Jun, [facility] [address] [id number] [address] [place] [address], [place] [address] Jun, [facility] [address] [id number] [address] [place] [address], [place] [address] Jan, [facility] [address] [id number] [address] [place] [address], [place] [address] Jan, [facility] [address] [id number] [address] [place] [address], [place] [address] 09 Jan, 2012 [facility] [address] [id number] [address] [place] [id number] 14 Dec, 2011 [facility] [address] [id number] [address] [place] [address], [place] [address] 13 Dec, 2011 [facility] [address] [id number] [address] [place] [address], [place] [address] 11 Dec, 2011 [facility] [address] [id number] [address] [place] [address], [place] [address] 07 Dec, 2011 [facility] [address] [id number] [address] [place] [address] 05 Dec, 2011 [facility] [address] [id number] [address] [place] [address] Dec, [facility] [address] [id number] [address] [place] [address] Nov, [facility] [address] [id number] [address] [place] [address] Nov, [facility] [address] [id number] [address] [place] [address] Oct, [facility] [address] [id number] [address] [place] [address] Jun, [facility] [address] [id number] [address] [place] [address] Jun, [facility] [address] [id number] [address] [place] [address] Jun, [facility] [address] [id number] [address] [place] [address] Jun, [facility] [address] [id number] [address] [place] [address] Feb, [facility] [address] [id number] [address] [place] [address] Feb, [facility] [address] [id number] [address] [place] [id number] 15 Jun, 2010 IMMUNIZATIONS No Known Immunizations [...]
--- OUTSIDE RECORDS SUMMARY | 2019-09-13 09:15 | XMS REPORT ---
Author Author Gracie Harris Organization [facility] Address [address] [place] [address] Care Team Providers Care Aircraft Loadmaster Superintendent Name Role Phone KURTIS Harris Unavailable PROBLEMS Type Condition ICD9-CM Code HUY95-ES Code Onset Dates Condition S tatus SNOMED Code Problem Depression, unspecified depression type F32.9 Active 51922027 Problem Fibrocystic breast changes, unspecified laterality N60.19 Active 41589587 Problem Allergic rhinitis J30.9 Active 61 394314 Problem Seasonal allergic rhinitis, unspecified trigger J3 0.2 Active 345543938 ALLERGIES No Information ENCOUNTERS Encounter Location Date Diagnosis [address] [address] Nov, [address] [address] Oct, [address] [address] Sep, Fibrocystic breast changes, unspecified laterality N60.[address] [address] Sep, Nipple pain N64.[address] [address] Sep, Nipple pain N64.[address] [address] August, Fungal infection of skin B36.9 and Nippl e pain N64.[address] [address] August, Seasonal allergic rhinitis, unspecified trigger J30.2 and Weight gain R63.[address] [address] August, [facility] [address] [place] [address] August, Allergic rhinitis J30.9 [facility] [address] [place] [address] Jul, Pre-employment health screening examinat ion Z02.1 [facility] [address] [place] [address] Jul, Allergic rhinitis J30.9 [facility] [address] [place] [address] [place] [address] Feb, 18 Abdomen enlarged R19.8 [facility] [address] [id number] [address] [place] [address] Jul, [facility] [address] [facility] [id number] [address] [place] [address] Jul, [facility] [address] [facility] [id number] [address] [place] [address] Mar, [facility] [place] [address] [place] [address] Mar, 14 [facility] [place] [address] [place] [address] Feb, 14 [facility] [address] [facility] [id number] [address] [place] [address] Feb, [facility] [address] [id number] [address] [place] [address] Dec, [facility] [address] [id number] [address] [place] [address] Dec, [facility] [address] [id number] [address] [place] [address] Dec, [facility] [address] [id number] [address] [place] [address] Dec, [facility] [address] [id number] [address] [place] [address] Dec, [facility] [address] [id number] [address] [place] [address], [place] [address] 11 Dec, 2013 [facility] [address] [id number] [address] [place] [address], [place] [address] Dec, [facility] [address] [id number] [address] [place] [address], [place] [address] Oct, [facility] [address] [id number] [address] [place] [address], [place] [address] Oct, [facility] [address] [id number] [address] [place] [address], [place] [address] August, [facility] [address] [id number] [address] [place] [address], [place] [address] August, [facility] [place] [address] [place] [address] Jul, [facility] [address] [id number] [address] [place] [address], [place] [address] Jul, [facility] [address] [id number] [address] [place] [address], [place] [address] Jun, [facility] [address] [id number] [address] [place] [address], [place] [address] Jun, [facility] [address] [id number] [address] [place] [address], [place] [address] Jun, [facility] [address] [id number] [address] [place] [address], [place] [address] Jan, [facility] [address] [id number] [address] [place] [address], [place] [address] Jan, [facility] [address] [id number] [address] [place] [address], [place] [address] 09 Jan, 2012 [facility] [address] [id number] [address] [place] [address], [place] [address] 14 Dec, 2011 [facility] [address] [id number] [address] [place] [address], [place] [address] 13 Dec, 2011 [facility] [place] [address] [id number] [address] [place] [phone] 11 Dec, 2011 [facility] [place] [address] [id number] [address] [place] [address] 07 Dec, 2011 [facility] [place] [address] [id number] [address] [place] [address] Dec, [facility] [place] [address] [id number] [address] [place] [phone] Dec, [facility] [address] [id number] [address] [place] [phone] Nov, [facility] [place] [address] [id number] [address] [place] [address] Nov, [facility] [address] [id number] [address] [place] [id number] Oct, [facility] [place] [address] [id number] [address] [place] [id number] Jun, [facility] [place] [address] [id number] [address] [place] [address] Jun, [facility] [place] [address] [id number] [address] [place] [phone] Jun, [facility] [place] [address] [id number] [address] [place] [address] Jun, [facility] [place] [address] [id number] [address] [place] [phone] Feb, [facility] [place] [address] [id number] [address] [place] [address] Feb, [facility] [place] [address] [id number] [address] [place] [id number] 15 Jun, 2010 IMMUNIZATIONS No Known Immunizations SOCIAL HISTORY Never Assessed REASON FOR VISIT PLAN OF CARE VITAL SIGNS MEDICATIONS Unknown Medications RESULTS No Results PROCEDURES No Known procedures INSTRUCTIONS MEDICATIONS ADMINISTERED No Known Medications MEDICAL (GENERAL) HISTORY Type Description Date Medical History depression Medical History seasonal allergies Surgical History tonsillectomy and adenoidectomy Surgical History section Surgical History dilatation and curettage Surgical History dental / child Hospitalization History see surgeries Hospitalization History childbirth only
--- OUTSIDE RECORDS SUMMARY | 2019-09-13 09:15 | XMS REPORT ---
Author Author Gracie Mancera Doctor Organization [facility] Address Unknown Phone Unavailable Care Team Providers Care Reptile Keeper Name Role Phone Migration, Doctor Unavailable Unavailable PROBLEMS Type Condition ICD9-CM Code YLF62-ED Code Onset Dates Condition S tatus SNOMED Code Problem Depression, unspecified depression type F32.9 Active 87441300 Problem Fibrocystic breast changes, unspecified laterality N60.19 Active 32989780 Problem Allergic rhinitis J30.9 Active 61 754930 Problem Seasonal allergic rhinitis, unspecified trigger J3 0.2 Active [id number] ALLERGIES No Information ENCOUNTERS Encounter Location Date Diagnosis [address] [address] Oct, [address] [address] Sep, Fibrocystic breast changes, unspecified laterality N60.[address] [address] Sep, Nipple pain N64.[address] [address] Sep, Nipple pain N64.[address] [address] August, Fungal infection of skin B36.9 and Nippl e pain N64.[address] [address] August, Seasonal allergic rhinitis, unspecified trigger J30.2 and Weight gain R63.[address] [address] August, [facility] [address] [place] [facility] [place] [address] August, Allergic rhinitis J30.9 [facility] [address] [place] [facility] [place] [address] Jul, Pre-employment health screening examinat ion Z02.1 [facility] [address] [place] [place] [address] Jul, Allergic rhinitis J30.9 [facility] [address] [place] [address] [place] [address] 08 Feb, 18 Abdomen enlarged R19.8 [facility] [address] [facility] [id number] [address] [place] [address] 14 Jul, 2014 [facility] [address] [facility] [id number] [address] [place] [address] Jul, [facility] [address] [place] [id number] [address] [place] [address] Mar, [facility] [address] [place] [address] Mar, 14 [facility] [address] [place] [address] Feb, 14 [facility] [address] [facility] [id number] [address] [place] [address] Feb, [facility] [address] [facility] [id number] [address] [place] [address] Dec, [facility] [address] [facility] [id number] [address] [place] [address] Dec, [facility] [address] [facility] [id number] [address] [place] [address] 22 Dec, 2013 [facility] [address] [facility] [id number] [address] [place] [address] 18 Dec, 2013 [facility] [address] [facility] [id number] [address] [place] [address] 18 Dec, 2013 [facility] [address] [facility] [id number] [address] [place] [address] Dec, [facility] [address] [facility] [id number] [address] [place] [address] Dec, [facility] [address] [id number] [address] [place] [address], [place] [address] Oct, [facility] [address] [id number] [address] [place] [address], [place] [address] Oct, [facility] [address] [id number] [address] [place] [address], [place] [address] August, [facility] [address] [id number] [address] [place] [address], [place] [address] August, [facility] [place] [address] [facility] [address] Jul, [facility] [address] [id number] [address] [place] [address], [place] [address] Jul, [facility] [address] [id number] [address] [place] [address], [place] [address] Jun, [facility] [address] [id number] [address] [place] [address], [place] [address] Jun, [facility] [address] [id number] [address] [place] [address], [place] [address] Jun, [facility] [address] [id number] [address] [place] [address], [place] [address] Jan, [facility] [address] [id number] [address] [place] [address], [place] [address] Jan, [facility] [address] [id number] [address] [place] [address], [place] [address] 09 Jan, 2012 [facility] [address] [id number] [address] [place] [address], [place] [address] 14 Dec, 2011 [facility] [address] [id number] [address] [place] [address], [place] [address] 13 Dec, 2011 [facility] [address] [id number] [address] [place] [address], [place] [address] 11 Dec, 2011 [facility] [address] [id number] [address] [place] [address], [place] [address] 07 Dec, 2011 [facility] [address] [id number] [address] [place] [phone] 05 Dec, 2011 [facility] [address] [id number] [address] [place] [address] Dec, [facility] [address] [id number] [address] [place] [phone] Nov, [facility] [address] [id number] [address] [place] [phone] Nov, [facility] [address] [id number] [address] [place] [address] Oct, [facility] [address] [id number] [address] [place] [phone] Jun, [facility] [address] [id number] [address] [place] [phone] Jun, [facility] [address] [id number] [address] [place] [address] Jun, [facility] [address] [id number] [address] [place] [address] Jun, [facility] [address] [id number] [address] [place] [phone] Feb, [facility] [address] [id number] [address] [place] [address] Feb, [facility] [address] [id number] [address] [place] [address] 15 Jun, 2010 IMMUNIZATIONS No Known Immunizations SOCIAL HISTORY Never Assessed REASON FOR VISIT PLAN OF CARE VITAL SIGNS Height 64 in 2014-03-07 Weight 104.8 lbs 2014-03-07 Temperature 98 degrees Fahrenheit 2014-03-07 Heart Rate 80 bpm 2014-03-07 Respiratory Rate 18 2014-03-07 Blood pressure systolic 114 mmHg 2014-03-07 Blood pressure diastolic 62 mmHg 2014-03-07 MEDICATIONS Unknown Medications RESULTS No Results PROCEDURES Procedure Date Ordered Result Body Site URINE TEST Mar 07, 2014 INSTRUCTIONS MEDICATIONS ADMINISTERED No Known Medications MEDICAL (GENERAL) HISTORY Type Description Date Medical History depression Medical History seasonal allergies Surgical History tonsillectomy and adenoidectomy Surgical History section Surgical History dilatation and curettage Surgical History dental / child Hospitalization History see surgeries Hospitalization History childbirth only
--- OUTSIDE RECORDS SUMMARY | 2019-09-13 09:15 | XMS REPORT ---
Author Author Gracie CUTLER Organization [facility] Address [address] [place] [address] Care Team Providers Care Director Compliance Name Role Phone HE VALERIA Unavailable PROBLEMS Type Condition ICD9-CM Code TQN33-QO Code Onset Dates Condition S tatus SNOMED Code Problem Depression, unspecified depression type F32.9 Active 30704244 Problem Fibrocystic breast changes, unspecified laterality N60.19 Active 13354854 Problem Allergic rhinitis J30.9 Active 61 270206 Problem Seasonal allergic rhinitis, unspecified trigger J3 0.2 Active 832316358 ALLERGIES No Information ENCOUNTERS Encounter Location Date Diagnosis [address] [address] Dec, Less than 8 weeks gestation of Z3A.[address] [address] Dec, Less than 8 weeks gestation of Z3A.01 and Acute sinusitis, unspecified J01.[address] [address] Dec, Acute sinusitis, unspecified J01.90 and Other specified bacterial agents as the cause of diseases classified elsewhere B96.[address] [address] Nov, [address] [address] Nov, [address] [address] Oct, [address] [address] Sep, Fibrocystic breast changes, unspecified laterality N60.[address] [address] Sep, Nipple pain N64.4 [facility] [address] [place] [address] Sep, Nipple pain N64.4 [facility] [address] [place] [address] August, Fungal infection of skin B36.9 and Nippl e pain N64.4 [facility] [address] [place] [address] August, Seasonal allergic rhinitis, unspecified trigger J30.2 and Weight gain R63.5 [facility] [address] [place] [address] August, [facility] [address] [facility] [place] [address] August, Allergic rhinitis J30.9 [facility] [address] [facility] [place] [address] Jul, Pre-employment health screening examinat ion Z02.1 [facility] [address] [facility] [place] [address] Jul, Allergic rhinitis J30.[address] [place] [address] Feb, 18 Abdomen enlarged R19.8 [facility] [address] [place] [id number] [address] [place] [address] Jul, [facility] [address] [place] [id number] [address] [place] [address] Jul, [facility] [address] [place] [id number] [address] [place] [address] Mar, [facility] [address] [place] [address] Mar, [facility] [address] [place] [address] Feb, 14 [facility] [address] [facility] [id number] [address] [place] [address] Feb, [facility] [address] [facility] [id number] [address] [place] [address] 23 Dec, 2013 [facility] [address] [id number] [address] [place] [address], [place] [address] 23 Dec, 2013 [facility] [address] [id number] [address] [place] [address], [place] [address] 22 Dec, 2013 [facility] [address] [id number] [address] [place] [address], [place] [address] Dec, [facility] [address] [id number] [address] [place] [address], [place] [address] 18 Dec, 2013 [facility] [address] [id number] [address] [place] [address], [place] [address] Dec, [facility] [address] [id number] [address] [place] [address], [place] [address] Dec, [facility] [address] [id number] [address] [place] [address], [place] [address] Oct, [facility] [address] [id number] [address] [place] [address], [place] [address] Oct, [facility] [address] [id number] [address] [place] [address] August, [facility] [address] [id number] [address] [place] [address], [place] [address] August, [facility] [address] [place] [address] Jul, [facility] [address] [id number] [address] [place] [address] Jul, [facility] [address] [id number] [address] [place] [address] Jun, [facility] [address] [id number] [address] [place] [address] Jun, [facility] [address] [id number] [address] [place] [address] Jun, [facility] [address] [id number] [address] [place] [address], [place] [address] 10 Jan, 2012 [facility] [address] [id number] [address] [place] [address], [place] [address] 10 Jan, 2012 [facility] [address] [id number] [address] [place] [address], [place] [address] 09 Jan, 2012 [facility] [address] [id number] [address] [place] [address], [place] [address] 14 Dec, 2011 [facility] [address] [id number] [address] [place] [address], [place] [address] 13 Dec, 2011 [facility] [address] [id number] [address] [place] [address], [place] [address] 11 Dec, 2011 [facility] [address] [id number] [address] [place] [address], [place] [address] 07 Dec, 2011 [facility] [address] [id number] [address] [place] [address], [place] [address] 05 Dec, 2011 [facility] [address] [id number] [address] [place] [address], [place] [address] 01 Dec, 2011 [facility] [address] [id number] [address] [place] [address], [place] [address] 31 Nov, 2011 [facility] [address] [id number] [address] [place] [address], [place] [address] 28 Nov, 2011 [facility] [address] [id number] [address] [place] [address], [place] [address] Oct, [facility] [address] [id number] [address] [place] [address], [place] [address] 13 Jun, 2011 [facility] [address] [id number] [address] [place] [address], [place] [address] 12 Jun, 2011 [facility] [address] [id number] [address] [place] [address], [place] [address] 10 Jun, 2011 [facility] [address] [id number] [address] [place] [address], [place] [address] Jun, [facility] [address] [facility] [id number] [address] [place] [address] Feb, [facility] [address] [facility] [id number] [address] [place] [address] Feb, [facility] [address] [facility] [id number] [address] [place] [address] Jun, IMMUNIZATIONS No Known Immunizations SOCIAL HISTORY Never Assessed REASON FOR VISIT PLAN OF CARE VITAL SIGNS Height 64 in 2013-11-13 Weight 108.9 lbs 2013-11-13 Temperature 98.9 degrees Fahrenheit 2013-11-13 Heart Rate 84 bpm 2013-11-13 Respiratory Rate 18 2013-11-13 Blood pressure systolic 114 mmHg 2013-11-13 Blood pressure diastolic 68 mmHg 2013-11-13 MEDICATIONS Unknown Medications RESULTS No Results PROCEDURES No Known procedures INSTRUCTIONS MEDICATIONS ADMINISTERED No Known Medications MEDICAL (GENERAL) HISTORY Type Description Date Medical History depression Medical History seasonal allergies Surgical History tonsillectomy and adenoidectomy Surgical History section Surgical History dilatation and curettage Surgical History dental / child Hospitalization History see surgeries Hospitalization History childbirth only
--- OUTSIDE RECORDS SUMMARY | 2019-09-13 09:15 | XMS REPORT ---
Author Author Gracie Harris Organization [facility] Address [address] [place] [address] Care Team Providers Care Electric Range Preparer Name Role Phone KURTIS Harris Unavailable PROBLEMS Type Condition ICD9-CM Code [id number] Code Onset Dates Condition S tatus SNOMED Code Problem Depression, unspecified depression type F32.9 Active 27090853 Problem Fibrocystic breast changes, unspecified laterality N60.19 Active 77026885 Problem Allergic rhinitis J30.9 Active 61 639025 Problem Seasonal allergic rhinitis, unspecified trigger J3 0.2 Active 156811344 ALLERGIES No Information ENCOUNTERS Encounter Location Date Diagnosis [address] [address] Nov, [address] [address] Oct, [address] [address] Sep, Fibrocystic breast changes, unspecified laterality N60.[address] [address] Sep, Nipple pain N64.[address] [address] Sep, Nipple pain N64.[address] [address] August, Fungal infection of skin B36.9 and Nippl e pain N64.[address] [address] August, Seasonal allergic rhinitis, unspecified trigger J30.2 and Weight gain R63.[address] [address] August, [facility] [address] [place] [address] August, Allergic rhinitis J30.9 [facility] [address] [place] [address] Jul, Pre-employment health screening examinat ion Z02.1 [facility] [address] [place] [address] Jul, Allergic rhinitis J30.9 [facility] [address] [place] [address] Feb, 18 Abdomen enlarged R19.8 [facility] [address] [id number] [address] [place] [address] Jul, [facility] [address] [facility] [id number] [address] [place] [address] Jul, [facility] [address] [facility] [id number] [address] [place] [address] Mar, [facility] [place] [address] [place] [address] Mar, [facility] [place] [address] [place] [address] Feb, 14 [facility] [address] [facility] [id number] [address] [place] [address] Feb, [facility] [address] [id number] [address] [place] [address] Dec, [facility] [address] [id number] [address] [place] [address] Dec, [facility] [address] [id number] [address] [place] [address] Dec, [facility] [address] [id number] [address] [place] [address] Dec, [facility] [address] [id number] [address] [place] [address] Dec, [facility] [address] [id number] [address] [place] [address], [place] [address] 11 Dec, 2013 [facility] [address] [id number] [address] [place] [address], [place] [address] Dec, [facility] [address] [id number] [address] [place] [address], [place] [address] Oct, [facility] [address] [id number] [address] [place] [address], [place] [address] Oct, [facility] [address] [id number] [address] [place] [address], [place] [address] August, [facility] [address] [id number] [address] [place] [address], [place] [address] August, [facility] [address] [place] [address] Jul, [facility] [address] [id number] [address] [place] [address], [place] [address] Jul, [facility] [address] [id number] [address] [place] [address], [place] [address] Jun, [facility] [address] [id number] [address] [place] [address], [place] [address] Jun, [facility] [address] [id number] [address] [place] [address], [place] [address] Jun, [facility] [address] [id number] [address] [place] [address], [place] [address] Jan, [facility] [address] [id number] [address] [place] [address], [place] [address] Jan, [facility] [address] [id number] [address] [place] [address], [place] [address] 09 Jan, 2012 [facility] [address] [id number] [address] [place] [address], [place] [address] 14 Dec, 2011 [facility] [address] [id number] [address] [place] [address], [place] [address] 13 Dec, 2011 [facility] [address] [id number] [address] [place] [address] 11 Dec, 2011 [facility] [address] [id number] [address] [place] [address] 07 Dec, 2011 [facility] [address] [id number] [address] [place] [address] 05 Dec, 2011 [facility] [address] [id number] [address] [place] [address] Dec, [facility] [address] [id number] [address] [place] [address] Nov, [facility] [address] [id number] [address] [place] [address] Nov, [facility] [address] [id number] [address] [place] [address] Oct, [facility] [address] [id number] [address] [place] [address] Jun, [facility] [address] [id number] [address] [place] [address] Jun, [facility] [address] [id number] [address] [place] [id number] Jun, [facility] [address] [id number] [address] [place] [id number] Jun, [facility] [address] [id number] [address] [place] [phone] Feb, [facility] [address] [id number] [address] [place] [id number] Feb, [facility] [address] [id number] [address] [place] [id number] 15 Jun, 2010 IMMUNIZATIONS No Known Immunizations SOCIAL HISTORY Never Assessed REASON FOR VISIT PLAN OF CARE VITAL SIGNS Height 64 in 2014-01-02 Weight 104.6 lbs 2014-01-02 Temperature 98.5 degrees Fahrenheit 2014-01-02 Heart Rate 72 bpm 2014-01-02 Respiratory Rate 18 2014-01-02 Blood pressure systolic 120 mmHg 2014-01-02 Blood pressure diastolic 72 mmHg 2014-01-02 MEDICATIONS Unknown Medications RESULTS No Results PROCEDURES No Known procedures INSTRUCTIONS MEDICATIONS ADMINISTERED No Known Medications MEDICAL (GENERAL) HISTORY Type Description Date Medical History depression Medical History seasonal allergies Surgical History tonsillectomy and adenoidectomy Surgical History section Surgical History dilatation and curettage Surgical History dental / child Hospitalization History see surgeries Hospitalization History childbirth only
--- OUTSIDE RECORDS SUMMARY | 2019-09-13 09:15 | XMS REPORT ---
Author Author rGacie Mancera Doctor Organization [facility] Address Unknown Phone Unavailable Care Team Providers Care Upholstery Auto Trimmer Name Role Phone Migration, Doctor Unavailable Unavailable PROBLEMS Type Condition ICD9-CM Code ACM95-RN Code Onset Dates Condition S tatus SNOMED Code Problem Depression, unspecified depression type F32.9 Active 32406927 Problem Fibrocystic breast changes, unspecified laterality N60.19 Active 27055499 Problem Allergic rhinitis J30.9 Active 61 141633 Problem Seasonal allergic rhinitis, unspecified trigger J3 0.2 Active 035056400 ALLERGIES No Information ENCOUNTERS Encounter Location Date Diagnosis [address] [address] Dec, Acute sinusitis, unspecified J01.90 and Other specified bacterial agents as the cause of diseases classified elsewhere B96.[address] [address] Nov, [address] [address] Nov, [address] [address] Oct, [address] [address] Sep, Fibrocystic breast changes, unspecified laterality N60.[address] [address] Sep, Nipple pain N64.[address] [address] Sep, Nipple pain N64.[address] [address] August, Fungal infection of skin B36.9 and Nippl e pain N64.[address] [address] August, Seasonal allergic rhinitis, unspecified trigger J30.2 and Weight gain R63.5 [facility] [address] [place] [address] August, [facility] [address] [place] [address] August, Allergic rhinitis J30.9 [facility] [address] [place] [address] Jul, Pre-employment health screening examinat ion Z02.1 [facility] [address] [place] [address] Jul, Allergic rhinitis J30.9 [facility] [address] [place] [address] 08 Feb, 18 Abdomen enlarged R19.8 [facility] [address] [facility] [id number] [address] [place] [address] 14 Jul, 2014 [facility] [address] [facility] [id number] [address] [place] [address] Jul, [facility] [address] [facility] [id number] [address] [place] [address] Mar, [facility] [address] [place] [address] Mar, 14 [facility] [address] [place] [address] Feb, 14 [facility] [address] [facility] [id number] [address] [place] [address] Feb, [facility] [address] [facility] [id number] [address] [place] [address] Dec, [facility] [address] [facility] [id number] [address] [place] [address] Dec, [facility] [address] [facility] [id number] [address] [place] [address] Dec, [facility] [address] [facility] [id number] [address] [place] [address] Dec, [facility] [address] [id number] [address] [place] [address], [place] [address] 18 Dec, 2013 [facility] [address] [id number] [address] [place] [address], [place] [address] Dec, [facility] [address] [id number] [address] [place] [address], [place] [address] Dec, [facility] [address] [id number] [address] [place] [address], [place] [address] Oct, [facility] [address] [id number] [address] [place] [address], [place] [address] Oct, [facility] [address] [id number] [address] [place] [address], [place] [address] August, [facility] [address] [id number] [address] [place] [address], [place] [address] August, [facility] [address] [place] [address] Jul, [facility] [address] [id number] [address] [place] [address], [place] [address] Jul, [facility] [address] [id number] [address] [place] [address], [place] [address] Jun, [facility] [address] [id number] [address] [place] [address], [place] [address] Jun, [facility] [address] [id number] [address] [place] [address], [place] [address] Jun, [facility] [address] [id number] [address] [place] [address], [place] [address] Jan, [facility] [address] [id number] [address] [place] [address], [place] [address] Jan, [facility] [address] [id number] [address] [place] [address] Jan, [facility] [address] [id number] [address] [place] [address] 14 Dec, 2011 [facility] [address] [id number] [address] [place] [address], [place] [address] 13 Dec, 2011 [facility] [address] [id number] [address] [place] [address] 11 Dec, 2011 [facility] [address] [id number] [address] [place] [address] 07 Dec, 2011 [facility] [address] [id number] [address] [place] [address] 05 Dec, 2011 [facility] [address] [id number] [address] [place] [address], [place] [address] Dec, [facility] [address] [id number] [address] [place] [address] 31 Nov, 2011 [facility] [address] [id number] [address] [place] [address] Nov, [facility] [address] [id number] [address] [place] [address] 27 Oct, 2011 [facility] [address] [id number] [address] [place] [address] Jun, [facility] [address] [id number] [address] [place] [address] Jun, [facility] [address] [id number] [address] [place] [address] 10 Jun, 2011 [facility] [address] [id number] [address] [place] [address] 07 Jun, 2011 [facility] [address] [id number] [address] [place] [address] Feb, [facility] [address] [id number] [address] [place] [address] 02 Feb, 2011 [facility] [address] [id number] [address] [place] [address] 15 Jun, 2010 IMMUNIZATIONS No Known Immunizations SOCIAL HISTORY Never Assessed REASON FOR VISIT PLAN OF CARE VITAL SIGNS Height 64 in 2014-03-24 Weight 110.4 lbs 2014-03-24 Respiratory Rate 18 2014-03-24 Blood pressure systolic 115 mmHg 2014-03-24 Blood pressure diastolic 60 mmHg 2014-03-24 MEDICATIONS No Known Medications RESULTS No Results PROCEDURES No Known procedures INSTRUCTIONS MEDICATIONS ADMINISTERED No Known Medications MEDICAL (GENERAL) HISTORY Type Description Date Medical History depression Medical History seasonal allergies Surgical History tonsillectomy and adenoidectomy Surgical History section Surgical History dilatation and curettage Surgical History dental / child Hospitalization History see surgeries Hospitalization History childbirth only
--- OUTSIDE RECORDS SUMMARY | 2019-09-13 09:16 | XMS REPORT ---
Author Author Gracie Mancera Doctor Organization [facility] Address Unknown Phone Unavailable Care Team Providers Care Pelt Shearer Name Role Phone Migration, Doctor Unavailable Unavailable PROBLEMS Type Condition ICD9-CM Code IGL79-DH Code Onset Dates Condition S tatus SNOMED Code Problem Counseling on substance use and abuse V65.42 Active 398121331 Problem Unspecified breast screening V76.10 A ctive 090559649 Problem examination or test, negative result V72.41 Active 588564887 Problem Unspecified contraceptive management V25.9 Active 810591866 Problem Leukorrhea, not specified as infective 623.5 Active 159900996 Problem Other and unspecified ovarian cyst 620.2 Active 60434782 Problem Acute gastritis without mention of hemorrhage 535.00 Active 58561151 Problem Nondependent tobacco use disorder 305.1 Active 423939423 Problem Other malaise and fatigue 780.79 Acti ve 859150006 Problem Unspecified anemia 285.9 Active 2 38919996 Problem Abdominal pain, unspecified site 789.00 Active 16636822 Problem Acute upper respiratory infections of unspecified site 465.9 Active 99311324 Problem Acute sinusitis, unspecified 461.9 A ctive 86302521 Problem Allergic rhinitis due to pollen 477.0 Active 37807650 Problem Depressive disorder, not elsewhere classified 311 Active 72762765 ALLERGIES No Information ENCOUNTERS Encounter Location Date Diagnosis [facility] [address] [place] [address] Feb, 18 Abdomen enlarged R19.8 [facility] [address] [facility] [id number] [address] [place] [address] Jul, [facility] [address] [place] [id number] [address] [place] [address] Jul, [facility] [address] [facility] [id number] [address] [place] [address] Mar, [facility] [place] [address] [place] [address] Mar, 14 [facility] [place] [address] [place] [address] Feb, 14 [facility] [address] [id number] [address] [place] [address], [place] [address] Feb, [facility] [address] [id number] [facility] [place] [address] Dec, [facility] [address] [id number] [address] [place] [address], [place] [address] Dec, [facility] [address] [id number] [address] [place] [address], [place] [address] Dec, [facility] [address] [id number] [address] [place] [address], [place] [address] Dec, [facility] [address] [id number] [address] [place] [address], [place] [address] Dec, [facility] [address] [id number] [address] [place] [address], [place] [address] Dec, [facility] [address] [id number] [address] [place] [address], [place] [address] Dec, [facility] [address] [id number] [address] [place] [address], [place] [address] Oct, [facility] [address] [id number] [address] [place] [address], [place] [address] Oct, [facility] [address] [id number] [address] [place] [address], [place] [address] August, [facility] [address] [id number] [address] [place] [address], [place] [address] August, [facility] [place] [address] [place] [address] Jul, 14 [facility] [address] [id number] [address] [place] [address], [place] [address] Jul, [facility] [address] [id number] [address] [place] [address], [place] [address] 28 Jun, 2012 [facility] [address] [id number] [address] [place] [address], [place] [address] 24 Jun, 2012 [facility] [address] [id number] [address] [place] [address], [place] [address] 20 Jun, 2012 [facility] [address] [id number] [address] [place] [address], [place] [address] 10 Jan, 2012 [facility] [address] [id number] [address] [place] [address], [place] [address] 10 Jan, 2012 [facility] [address] [id number] [address] [place] [address], [place] [address] 09 Jan, 2012 [facility] [address] [id number] [address] [place] [address], [place] [address] 14 Dec, 2011 [facility] [address] [id number] [address] [place] [address], [place] [address] 13 Dec, 2011 [facility] [address] [id number] [address] [place] [address], [place] [address] 11 Dec, 2011 [facility] [address] [id number] [address] [place] [address], [place] [address] 07 Dec, 2011 [facility] [address] [id number] [address] [place] [address], [place] [address] 05 Dec, 2011 [facility] [address] [id number] [address] [place] [address], [place] [address] 01 Dec, 2011 [facility] [address] [id number] [address] [place] [address], [place] [address] 31 Nov, 2011 [facility] [address] [id number] [address] [place] [address], [place] [address] 28 Nov, 2011 [facility] [address] [id number] [address] [place] [address], [place] [address] 27 Oct, 2011 [facility] [address] [id number] [address] [place] [address], [place] [address] 13 Jun, 2011 [facility] [address] [facility] [id number] [address] [place] [address] Jun, [facility] [address] [facility] [id number] [address] [place] [address] Jun, [facility] [address] [facility] [id number] [address] [place] [address] Jun, [facility] [address] [facility] [id number] [address] [place] [address] Feb, [facility] [address] [facility] [id number] [address] [place] [address] Feb, [facility] [address] [facility] [id number] [address] [place] [address] Jun, IMMUNIZATIONS No Known Immunizations SOCIAL HISTORY Never Assessed REASON FOR VISIT EMR-[facility] PLAN OF CARE VITAL SIGNS MEDICATIONS Unknown Medications RESULTS No Results PROCEDURES No Known procedures INSTRUCTIONS MEDICATIONS ADMINISTERED No Known Medications MEDICAL (GENERAL) HISTORY Type Description Date Surgical History No Surgical history information
--- OUTSIDE RECORDS SUMMARY | 2019-09-13 09:16 | XMS REPORT ---
Author Author Gracie Mancera Doctor Organization [facility] Address Unknown Phone Unavailable Care Team Providers Care Circuit Breaker Assembler Name Role Phone Migration, Doctor Unavailable Unavailable PROBLEMS Type Condition ICD9-CM Code HRD48-SM Code Onset Dates Condition S tatus SNOMED Code Problem Counseling on substance use and abuse V65.42 Active 899447383 Problem Unspecified breast screening V76.10 A ctive 436224847 Problem examination or test, negative result V72.41 Active 009824999 Problem Unspecified contraceptive management V25.9 Active 789999165 Problem Leukorrhea, not specified as infective 623.5 Active 058347154 Problem Other and unspecified ovarian cyst 620.2 Active 33802178 Problem Acute gastritis without mention of hemorrhage 535.00 Active 66080908 Problem Nondependent tobacco use disorder 305.1 Active 082077438 Problem Other malaise and fatigue 780.79 Acti ve 012812419 Problem Unspecified anemia 285.9 Active 2 05666467 Problem Abdominal pain, unspecified site 789.00 Active 27734244 Problem Acute upper respiratory infections of unspecified site 465.9 Active 42723300 Problem Acute sinusitis, unspecified 461.9 A ctive 24323931 Problem Allergic rhinitis due to pollen 477.0 Active 44798537 Problem Depressive disorder, not elsewhere classified 311 Active 30557956 ALLERGIES No Information ENCOUNTERS Encounter Location Date Diagnosis [facility] [address] [place] [address] Feb, 18 Abdomen enlarged R19.8 [facility] [address] [facility] [id number] [address] [place] [address] Jul, [facility] [address] [place] [id number] [address] [place] [address] Jul, [facility] [address] [facility] [id number] [address] [place] [address] Mar, [facility] [address] [place] [address] Mar, 14 [facility] [place] [address] [facility] [place] [address] Feb, 14 [facility] [address] [id number] [address] [place] [address], [place] [address] Feb, [facility] [address] [id number] [facility] [place] [address] Dec, [facility] [address] [id number] [address] [place] [address], [place] [address] Dec, [facility] [address] [id number] [address] [place] [address], [place] [address] Dec, [facility] [address] [id number] [address] [place] [address], [place] [address] Dec, [facility] [address] [id number] [address] [place] [address], [place] [address] Dec, [facility] [address] [id number] [address] [place] [address], [place] [address] Dec, [facility] [address] [id number] [address] [place] [address], [place] [address] Dec, [facility] [address] [id number] [address] [place] [address], [place] [address] Oct, [facility] [address] [id number] [address] [place] [address], [place] [address] Oct, [facility] [address] [id number] [address] [place] [address], [place] [address] August, [facility] [address] [id number] [address] [place] [address], [place] [address] August, [facility] [place] [address] [facility] [place] [address] Jul, 14 [facility] [address] [id number] [address] [place] [address], [place] [address] Jul, [facility] [address] [id number] [address] [place] [address], [place] [address] 28 Jun, 2012 [facility] [address] [id number] [address] [place] [address], [place] [address] 24 Jun, 2012 [facility] [address] [id number] [address] [place] [address], [place] [address] 20 Jun, 2012 [facility] [address] [id number] [address] [place] [address], [place] [address] 10 Jan, 2012 [facility] [address] [id number] [address] [place] [address], [place] [address] 10 Jan, 2012 [facility] [address] [id number] [address] [place] [address], [place] [address] 09 Jan, 2012 [facility] [address] [id number] [address] [place] [address], [place] [address] 14 Dec, 2011 [facility] [address] [id number] [address] [place] [address], [place] [address] 13 Dec, 2011 [facility] [address] [id number] [address] [place] [address], [place] [address] 11 Dec, 2011 [facility] [address] [id number] [address] [place] [address], [place] [address] 07 Dec, 2011 [facility] [address] [id number] [address] [place] [address], [place] [address] 05 Dec, 2011 [facility] [address] [id number] [address] [place] [address], [place] [address] 01 Dec, 2011 [facility] [address] [id number] [address] [place] [address], [place] [address] 31 Nov, 2011 [facility] [address] [id number] [address] [place] [address], [place] [address] 28 Nov, 2011 [facility] [address] [id number] [address] [place] [address], [place] [address] 27 Oct, 2011 [facility] [address] [id number] [address] [place] [address], [place] [address] 13 Jun, 2011 [facility] [address] [facility] [id number] [address] [place] [address] Jun, [facility] [address] [facility] [id number] [address] [place] [address] Jun, [facility] [address] [facility] [id number] [address] [place] [address] Jun, [facility] [address] [facility] [id number] [address] [place] [address] Feb, [facility] [address] [facility] [id number] [address] [place] [address] Feb, [facility] [address] [facility] [id number] [address] [place] [address] Jun, IMMUNIZATIONS No Known Immunizations SOCIAL HISTORY Never Assessed REASON FOR VISIT [place] [place] OF CARE VITAL SIGNS MEDICATIONS Unknown Medications RESULTS No Results PROCEDURES No Known procedures INSTRUCTIONS MEDICATIONS ADMINISTERED No Known Medications MEDICAL (GENERAL) HISTORY Type Description Date Surgical History No Surgical history information
--- OUTSIDE RECORDS SUMMARY | 2019-09-13 09:16 | XMS REPORT ---
Author Author Gracie RAYGOZA Organization [facility] Address [address] [place] [address] Care Team Providers Care Community Relations Director Name Role Phone MARCOS RAYGOZA Unavailable PROBLEMS Type Condition ICD9-CM Code JRY51-KL Code Onset Dates Condition S tatus SNOMED Code Problem Depression, unspecified depression type F32.9 Active 93940526 Problem Fibrocystic breast changes, unspecified laterality N60.19 Active 03847978 Problem Allergic rhinitis J30.9 Active 61 518763 Problem Seasonal allergic rhinitis, unspecified trigger J3 0.2 Active 794231108 ALLERGIES No Information ENCOUNTERS Encounter Location Date Diagnosis [address] [address] Oct, [address] [address] Sep, Fibrocystic breast changes, unspecified laterality N60.[address] [address] Sep, Nipple pain N64.[address] [address] Sep, Nipple pain N64.[address] [address] August, Fungal infection of skin B36.9 and Nippl e pain N64.[address] [address] August, Seasonal allergic rhinitis, unspecified trigger J30.2 and Weight gain R63.[address] [address] August, [facility] [address] [place] [address] August, Allergic rhinitis J30.9 [facility] [address] [place] [address] Jul, Pre-employment health screening examinat ion Z02.1 [facility] [address] [place] [address] Jul, Allergic rhinitis J30.9 [facility] [address] [place] [address] 08 Feb, 18 Abdomen enlarged R19.8 [facility] [address] [id number] [address] [place] [address] 14 Jul, 2014 [facility] [address] [facility] [id number] [address] [place] [address] Jul, [facility] [address] [facility] [id number] [address] [place] [address] Mar, [facility] [address] [place] [address] Mar, 14 [facility] [address] [place] [address] Feb, 14 [facility] [address] [id number] [address] [place] [address] Feb, [facility] [address] [facility] [id number] [address] [place] [address] Dec, [facility] [address] [id number] [address] [place] [address] Dec, [facility] [address] [id number] [address] [place] [address] 22 Dec, 2013 [facility] [address] [id number] [address] [place] [address] 18 Dec, 2013 [facility] [address] [facility] [id number] [address] [place] [address] 18 Dec, 2013 [facility] [address] [facility] [id number] [address] [place] [address] 11 Dec, 2013 [facility] [address] [id number] [address] [place] [address], [place] [address] 11 Dec, 2013 [facility] [address] [id number] [address] [place] [address], [place] [address] Oct, [facility] [address] [id number] [address] [place] [address], [place] [address] Oct, [facility] [address] [id number] [address] [place] [address], [place] [address] August, [facility] [address] [id number] [address] [place] [address], [place] [address] August, [facility] [address] [place] [address] Jul, [facility] [address] [id number] [address] [place] [address], [place] [address] Jul, [facility] [address] [id number] [address] [place] [address], [place] [address] Jun, [facility] [address] [id number] [address] [place] [address], [place] [address] Jun, [facility] [address] [id number] [address] [place] [address], [place] [address] Jun, [facility] [address] [id number] [address] [place] [address], [place] [address] Jan, [facility] [address] [id number] [address] [place] [address], [place] [address] Jan, [facility] [address] [id number] [address] [place] [address], [place] [address] 09 Jan, 2012 [facility] [address] [id number] [address] [place] [address], [place] [address] 14 Dec, 2011 [facility] [address] [id number] [address] [place] [address], [place] [address] 13 Dec, 2011 [facility] [address] [id number] [address] [place] [address], [place] [address] 11 Dec, 2011 [facility] [address] [id number] [address] [place] [address] 07 Dec, 2011 [facility] [address] [id number] [address] [place] [phone] 05 Dec, 2011 [facility] [address] [id number] [address] [place] [address] Dec, [facility] [address] [id number] [address] [place] [address] Nov, [facility] [address] [id number] [address] [place] [address] Nov, [facility] [address] [id number] [address] [place] [phone] Oct, [facility] [address] [id number] [address] [place] [address] Jun, [facility] [address] [id number] [address] [place] [address] Jun, [facility] [address] [id number] [address] [place] [address] Jun, [facility] [address] [id number] [address] [place] [address] Jun, [facility] [address] [id number] [address] [place] [address] Feb, [facility] [address] [id number] [address] [place] [address] Feb, [facility] [address] [id number] [address] [place] [address] 15 Jun, 2010 IMMUNIZATIONS No Known Immunizations [...]
--- OUTSIDE RECORDS SUMMARY | 2019-09-13 09:16 | XMS REPORT ---
Author Author Gracie RAYGOZA Organization [facility] Address [address] [place] [address] Care Team Providers Care Forward Air Controller/Air Officer Name Role Phone MARCOS RAYGOZA Unavailable PROBLEMS Type Condition ICD9-CM Code [id number] Code Onset Dates Condition S tatus SNOMED Code Problem Depression, unspecified depression type F32.9 Active 72806809 Problem Fibrocystic breast changes, unspecified laterality N60.19 Active 06315433 Problem Allergic rhinitis J30.9 Active 61 076598 Problem Seasonal allergic rhinitis, unspecified trigger J3 0.2 Active 437592598 ALLERGIES No Information ENCOUNTERS Encounter Location Date Diagnosis [address] [address] Oct, [address] [address] Sep, Fibrocystic breast changes, unspecified laterality N60.[address] [address] Sep, Nipple pain N64.[address] [address] Sep, Nipple pain N64.[address] [address] August, Fungal infection of skin B36.9 and Nippl e pain N64.[address] [address] August, Seasonal allergic rhinitis, unspecified trigger J30.2 and Weight gain R63.[address] [address] August, [facility] [address] [place] [address] August, Allergic rhinitis J30.9 [facility] [address] [facility] [place] [address] Jul, Pre-employment health screening examinat ion Z02.1 [facility] [address] [facility] [place] [address] Jul, Allergic rhinitis J30.9 [facility] [address] [place] [address] 08 Feb, 18 Abdomen enlarged R19.8 [facility] [address] [id number] [address] [place] [phone] 14 Jul, 2014 [facility] [address] [facility] [id number] [address] [place] [address] Jul, [facility] [address] [facility] [id number] [address] [place] [address] Mar, [facility] [address] [place] [address] Mar, 14 [facility] [address] [place] [address] Feb, 14 [facility] [address] [id number] [address] [place] [address] Feb, [facility] [address] [facility] [id number] [address] [place] [phone] Dec, [facility] [address] [id number] [address] [place] [phone] Dec, [facility] [address] [id number] [address] [place] [phone] 22 Dec, 2013 [facility] [address] [id number] [address] [place] [phone] 18 Dec, 2013 [facility] [address] [facility] [id number] [address] [place] [phone] 18 Dec, 2013 [facility] [address] [facility] [id number] [address] [place] [phone] 11 Dec, 2013 [facility] [address] [id number] [address] [place] [address], [place] [address] 11 Dec, 2013 [facility] [address] [id number] [address] [place] [address], [place] [address] Oct, [facility] [address] [id number] [address] [place] [address], [place] [address] Oct, [facility] [address] [id number] [address] [place] [address], [place] [address] August, [facility] [address] [id number] [address] [place] [address], [place] [address] August, [facility] [address] [place] [address] Jul, [facility] [address] [id number] [address] [place] [address], [place] [address] Jul, [facility] [address] [id number] [address] [place] [address], [place] [address] Jun, [facility] [address] [id number] [address] [place] [address], [place] [address] Jun, [facility] [address] [id number] [address] [place] [address], [place] [address] Jun, [facility] [address] [id number] [address] [place] [address], [place] [address] Jan, [facility] [address] [id number] [address] [place] [address], [place] [address] Jan, [facility] [address] [id number] [address] [place] [address], [place] [address] 09 Jan, 2012 [facility] [address] [id number] [address] [place] [address], [place] [address] 14 Dec, 2011 [facility] [address] [id number] [address] [place] [address], [place] [address] 13 Dec, 2011 [facility] [address] [id number] [address] [place] [address], [place] [address] 11 Dec, 2011 [facility] [address] [id number] [address] [place] [id number] 07 Dec, 2011 [facility] [address] [id number] [address] [place] [phone] 05 Dec, 2011 [facility] [address] [id number] [address] [place] [phone] Dec, [facility] [address] [id number] [address] [place] [phone] Nov, [facility] [address] [id number] [address] [place] [address] Nov, [facility] [address] [id number] [address] [place] [phone] Oct, [facility] [address] [id number] [address] [place] [phone] Jun, [facility] [address] [id number] [address] [place] [phone] Jun, [facility] [address] [id number] [address] [place] [id number] Jun, [facility] [address] [id number] [address] [place] [phone] Jun, [facility] [address] [id number] [address] [place] [phone] Feb, [facility] [address] [id number] [address] [place] [phone] Feb, [facility] [address] [id number] [address] [place] [phone] 15 Jun, 2010 IMMUNIZATIONS No Known Immunizations [...]
--- OUTSIDE RECORDS SUMMARY | 2019-09-13 09:16 | XMS REPORT ---
Author Author Gracie Mancera Doctor Organization [facility] Address Unknown Phone Unavailable Care Team Providers Care Lining Stamper Name Role Phone Migration, Doctor Unavailable Unavailable PROBLEMS Type Condition ICD9-CM Code [id number] Code Onset Dates Condition S tatus SNOMED Code Problem Counseling on substance use and abuse V65.42 Active 958366845 Problem Unspecified breast screening V76.10 A ctive 239090454 Problem examination or test, negative result V72.41 Active 749060721 Problem Unspecified contraceptive management V25.9 Active 409066249 Problem Leukorrhea, not specified as infective 623.5 Active 560976806 Problem Other and unspecified ovarian cyst 620.2 Active 10743894 Problem Acute gastritis without mention of hemorrhage 535.00 Active 81147937 Problem Nondependent tobacco use disorder 305.1 Active 182799153 Problem Other malaise and fatigue 780.79 Acti ve 730462462 Problem Unspecified anemia 285.9 Active 2 84244527 Problem Abdominal pain, unspecified site 789.00 Active 69727550 Problem Acute upper respiratory infections of unspecified site 465.9 Active 89157677 Problem Acute sinusitis, unspecified 461.9 A ctive 74544798 Problem Allergic rhinitis due to pollen 477.0 Active 56318222 Problem Depressive disorder, not elsewhere classified 311 Active 08507632 ALLERGIES No Information ENCOUNTERS Encounter Location Date Diagnosis [facility] [address] [place] [address] Feb, 18 Abdomen enlarged R19.8 [facility] [address] [facility] [id number] [address] [place] [address] Jul, [facility] [address] [place] [id number] [address] [place] [phone] Jul, [facility] [address] [facility] [id number] [address] [place] [address] Mar, [facility] [place] [address] [place] [address] Mar, 14 [facility] [place] [address] [facility] [place] [address] Feb, 14 [facility] [address] [id number] [address] [place] [address], [place] [address] Feb, [facility] [address] [id number] [facility] [place] [address] Dec, [facility] [address] [id number] [address] [place] [address], [place] [address] Dec, [facility] [address] [id number] [address] [place] [address], [place] [address] Dec, [facility] [address] [id number] [address] [place] [address], [place] [address] Dec, [facility] [address] [id number] [address] [place] [address], [place] [address] Dec, [facility] [address] [id number] [address] [place] [address], [place] [address] Dec, [facility] [address] [id number] [address] [place] [address], [place] [address] Dec, [facility] [address] [id number] [address] [place] [address], [place] [address] Oct, [facility] [address] [id number] [address] [place] [address], [place] [address] Oct, [facility] [address] [id number] [address] [place] [address], [place] [address] August, [facility] [address] [id number] [address] [place] [address], [place] [address] August, [facility] [place] [address] [facility] [place] [address] Jul, 14 [facility] [address] [id number] [address] [place] [address], [place] [address] Jul, [facility] [address] [id number] [address] [place] [address], [place] [address] 28 Jun, 2012 [facility] [address] [id number] [address] [place] [address], [place] [address] 24 Jun, 2012 [facility] [address] [id number] [address] [place] [address], [place] [address] 20 Jun, 2012 [facility] [address] [id number] [address] [place] [address], [place] [address] 10 Jan, 2012 [facility] [address] [id number] [address] [place] [address], [place] [address] 10 Jan, 2012 [facility] [address] [id number] [address] [place] [address], [place] [address] 09 Jan, 2012 [facility] [address] [id number] [address] [place] [address], [place] [address] 14 Dec, 2011 [facility] [address] [id number] [address] [place] [address], [place] [address] 13 Dec, 2011 [facility] [address] [id number] [address] [place] [address], [place] [address] 11 Dec, 2011 [facility] [address] [id number] [address] [place] [address], [place] [address] 07 Dec, 2011 [facility] [address] [id number] [address] [place] [address], [place] [address] 05 Dec, 2011 [facility] [address] [id number] [address] [place] [address], [place] [address] 01 Dec, 2011 [facility] [address] [id number] [address] [place] [address], [place] [address] 31 Nov, 2011 [facility] [address] [id number] [address] [place] [address], [place] [address] 28 Nov, 2011 [facility] [address] [id number] [address] [place] [address], [place] [address] 27 Oct, 2011 [facility] [address] [id number] [address] [place] [address], [place] [address] 13 Jun, 2011 [facility] [address] [facility] [id number] [address] [place] [phone] Jun, [facility] [address] [facility] [id number] [address] [place] [phone] Jun, [facility] [address] [facility] [id number] [address] [place] [id number] Jun, [facility] [address] [facility] [id number] [address] [place] [id number] Feb, [facility] [address] [facility] [id number] [address] [place] [phone] Feb, [facility] [address] [facility] [id number] [address] [place] [phone] Jun, IMMUNIZATIONS No Known Immunizations SOCIAL HISTORY Never Assessed REASON FOR VISIT [facility] PLAN OF CARE VITAL SIGNS MEDICATIONS Unknown Medications RESULTS No Results PROCEDURES No Known procedures INSTRUCTIONS MEDICATIONS ADMINISTERED No Known Medications MEDICAL (GENERAL) HISTORY Type Description Date Surgical History No Surgical history information
--- OUTSIDE RECORDS SUMMARY | 2019-09-13 09:16 | XMS REPORT ---
Author Author Gracie Mancera Doctor Organization [facility] Address Unknown Phone Unavailable Care Team Providers Care Hydraulic Bull Riveter Operator Name Role Phone Migration, Doctor Unavailable Unavailable PROBLEMS Type Condition ICD9-CM Code CVK48-KH Code Onset Dates Condition S tatus SNOMED Code Problem Unspecified breast screening V76.10 A ctive 386795072 Problem Unspecified contraceptive management V25.9 Active 488820063 Problem Counseling on substance use and abuse V65.42 Active 075552902 Problem Abdominal pain, unspecified site 789.00 Active 51923241 Problem examination or test, negative result V72.41 Active 998757325 Problem Other and unspecified ovarian cyst 620.2 Active 58837733 Problem Acute gastritis without mention of hemorrhage 535.00 Active 31952730 Problem Acute upper respiratory infections of unspecified site 465.9 Active 51780380 Problem Unspecified anemia 285.9 Active 2 80573302 Problem Leukorrhea, not specified as infective 623.5 Active 646465519 Problem Allergic rhinitis J30.9 Active 61 898323 Problem Other malaise and fatigue 780.79 Acti ve 263007041 Problem Acute sinusitis, unspecified 461.9 A ctive 74404958 Problem Allergic rhinitis due to pollen 477.0 Active 29255668 Problem Depressive disorder, not elsewhere classified 311 Active 07089616 Problem Nondependent tobacco use disorder 305.1 Active 613214882 ALLERGIES No Information ENCOUNTERS Encounter Location Date Diagnosis [facility] [address] [facility] [place] [address] Jul, Pre-employment health screening examinat ion Z02.1 [facility] [address] [place] [place] [address] Jul, Allergic rhinitis J30.9 [facility] [address] [place] [address] 08 Feb, 18 Abdomen enlarged R19.8 [facility] [address] [facility] [id number] [address] [place] [address] Jul, [facility] [address] [id number] [address] [place] [address], [place] [address] Jul, [facility] [address] [id number] [address] [place] [address] Mar, [facility] [place] [address] [place] [address] Mar, [facility] [place] [address] [place] [address] Feb, [facility] [address] [id number] [address] [place] [address], [place] [address] Feb, [facility] [address] [id number] [address] [place] [address], [place] [address] Dec, [facility] [address] [id number] [address] [place] [address], [place] [address] Dec, [facility] [address] [id number] [address] [place] [address], [place] [address] Dec, [facility] [address] [id number] [address] [place] [address], [place] [address] Dec, [facility] [address] [id number] [address] [place] [address], [place] [address] Dec, [facility] [address] [id number] [address] [place] [address], [place] [address] Dec, [facility] [address] [id number] [address] [place] [address] Dec, [facility] [address] [id number] [address] [place] [address], [place] [address] Oct, [facility] [address] [id number] [address] [place] [address], [place] [address] Oct, [facility] [address] [id number] [address] [place] [address], [place] [address] August, [facility] [address] [id number] [address] [place] [address] August, [facility] [place] [address] [place] [address] 14 Jul, [facility] [address] [id number] [address] [place] [address], [place] [address] 14 Jul, 2013 [facility] [address] [id number] [address] [place] [address], [place] [address] Jun, [facility] [address] [id number] [address] [place] [address], [place] [address] 24 Jun, 2012 [facility] [address] [id number] [address] [place] [address], [place] [address] Jun, [facility] [address] [id number] [address] [place] [address], [place] [address] Jan, [facility] [address] [id number] [address] [place] [address], [place] [address] Jan, [facility] [address] [id number] [address] [place] [address], [place] [address] 09 Jan, 2012 [facility] [address] [id number] [address] [place] [address] 14 Dec, 2011 [facility] [address] [id number] [address] [place] [address], [place] [address] 13 Dec, 2011 [facility] [address] [id number] [address] [place] [address], [place] [address] 11 Dec, 2011 [facility] [address] [id number] [address] [place] [address], [place] [address] 07 Dec, 2011 [facility] [address] [id number] [address] [place] [address], [place] [address] 05 Dec, 2011 [facility] [address] [id number] [address] [place] [address], [place] [address] Dec, [facility] [address] [id number] [address] [place] [address], [place] [address] Nov, [facility] [address] [id number] [address] [place] [address] Nov, [facility] [address] [id number] [address] [place] [address] Oct, [facility] [address] [id number] [address] [place] [address] Jun, [facility] [address] [id number] [address] [place] [address] Jun, [facility] [address] [id number] [address] [place] [address] Jun, [facility] [address] [id number] [address] [place] [address] Jun, [facility] [address] [id number] [address] [place] [address] Feb, [facility] [address] [id number] [address] [place] [address] Feb, [facility] [address] [id number] [address] [place] [address] Jun, IMMUNIZATIONS No Known Immunizations SOCIAL HISTORY Never Assessed REASON FOR VISIT [facility] [place] PLAN OF CARE VITAL SIGNS MEDICATIONS No [...]
--- OUTSIDE RECORDS SUMMARY | 2019-09-13 09:16 | XMS REPORT ---
Author Author Gracie Mancera Doctor Organization [facility] Address Unknown Phone Unavailable Care Team Providers Care Battery Engineer Name Role Phone Migration, Doctor Unavailable Unavailable PROBLEMS Type Condition ICD9-CM Code RST04-BS Code Onset Dates Condition S tatus SNOMED Code Problem Depression, unspecified depression type F32.9 Active 82799192 Problem Fibrocystic breast changes, unspecified laterality N60.19 Active 44647265 Problem Allergic rhinitis J30.9 Active 61 040831 Problem Seasonal allergic rhinitis, unspecified trigger J3 0.2 Active 811009305 ALLERGIES Substance Reaction Event Type Date Status Chantix 1 Mg Tablet Increased depression. Non Drug Allergy Jul, Active ENCOUNTERS Encounter Location Date Diagnosis [address] [address] Sep, Fibrocystic breast changes, unspecified laterality N60.[address] [address] Sep, Nipple pain N64.[address] [address] Sep, Nipple pain N64.[address] [address] August, Fungal infection of skin B36.9 and Nippl e pain N64.[address] [address] August, Seasonal allergic rhinitis, unspecified trigger J30.2 and Weight gain R63.[address] [address] August, [facility] [address] [place] [address] August, Allergic rhinitis J30.9 [facility] [address] [place] [address] Jul, Pre-employment health screening examinat ion Z02.1 [facility] [address] [place] [address] Jul, Allergic rhinitis J30.9 [facility] [address] [place] [address] 08 Feb, 18 Abdomen enlarged [facility]19.8 [facility] [address] [facility] [id number] [address] [place] [address] 14 Jul, 2014 [facility] [address] [facility] [id number] [address] [place] [address] Jul, [facility] [address] [facility] [id number] [address] [place] [address] Mar, [facility] [address] [place] [address] Mar, 14 [facility] [address] [place] [address] Feb, 14 [facility] [address] [facility] [id number] [address] [place] [address] Feb, [facility] [address] [facility] [id number] [address] [place] [address] Dec, [facility] [address] [facility] [id number] [address] [place] [address] 23 Dec, 2013 [facility] [address] [facility] [id number] [address] [place] [address] 22 Dec, 2013 [facility] [address] [facility] [id number] [address] [place] [address] 18 Dec, 2013 [facility] [address] [facility] [id number] [address] [place] [address] 18 Dec, 2013 [facility] [address] [facility] [id number] [address] [place] [address] Dec, [facility] [address] [facility] [id number] [address] [place] [address] Dec, [facility] [address] [id number] [address] [place] [address], [place] [address] Oct, [facility] [address] [id number] [address] [place] [address], [place] [address] Oct, [facility] [address] [id number] [address] [place] [address], [place] [address] August, [facility] [address] [id number] [address] [place] [address], [place] [address] August, [facility] [address] [facility] [place] [address] Jul, [facility] [address] [id number] [address] [place] [address], [place] [address] Jul, [facility] [address] [id number] [address] [place] [address], [place] [address] Jun, [facility] [address] [id number] [address] [place] [address], [place] [address] Jun, [facility] [address] [id number] [address] [place] [address], [place] [address] Jun, [facility] [address] [id number] [address] [place] [address], [place] [address] Jan, [facility] [address] [id number] [address] [place] [address], [place] [address] Jan, [facility] [address] [id number] [address] [place] [address], [place] [address] 09 Jan, 2012 [facility] [address] [id number] [address] [place] [address], [place] [address] 14 Dec, 2011 [facility] [address] [id number] [address] [place] [address], [place] [address] 13 Dec, 2011 [facility] [address] [id number] [address] [place] [address], [place] [address] 11 Dec, 2011 [facility] [address] [id number] [address] [place] [address], [place] [address] 07 Dec, 2011 [facility] [address] [id number] [address] [place] [address] 05 Dec, 2011 [facility] [address] [id number] [address] [place] [address] Dec, [facility] [address] [id number] [address] [place] [address] Nov, [facility] [address] [id number] [address] [place] [address] Nov, [facility] [address] [id number] [address] [place] [address] Oct, [facility] [address] [id number] [address] [place] [address] Jun, [facility] [address] [id number] [address] [place] [address] Jun, [facility] [address] [id number] [address] [place] [address] Jun, [facility] [address] [id number] [address] [place] [address] Jun, [facility] [address] [id number] [address] [place] [address] Feb, [facility] [address] [id number] [address] [place] [address] Feb, [facility] [address] [id number] [address] [place] [address] Jun, IMMUNIZATIONS No Known Immunizations SOCIAL HISTORY Never Assessed REASON FOR VISIT [facility] [place] VITAL SIGNS MEDICATIONS Medication Instructions Dosage Frequency Start Date End Date Duration S tatus Iron 325 mg (65 mg iron) 1 Tablet 1 time per day August, Active Nasacort 55 mcg Dec, Act mina Azithromycin 250 mg 2 Tablet by Oral rou te on day 1 then take 1 daily for 5 days August, Active Singulair 10 mg 1 tablet by Oral route 1 time per day Dec, Active RESULTS No Results PROCEDURES No Known procedures INSTRUCTIONS MEDICATIONS ADMINISTERED No Known Medications MEDICAL (GENERAL) HISTORY Type Description Date Medical History depression Medical History seasonal allergies Surgical History tonsillectomy and adenoidectomy Surgical History section Surgical History dilatation and curettage Surgical History dental / child Hospitalization History see surgeries Hospitalization History childbirth only
--- OUTSIDE RECORDS SUMMARY | 2019-09-13 09:16 | XMS REPORT ---
Author Author Gracie Mancera Doctor Organization [facility] Address Unknown Phone Unavailable Care Team Providers Care Grounds/Maintenance Specialist Name Role Phone Migration, Doctor Unavailable Unavailable PROBLEMS Type Condition ICD9-CM Code JLW46-IY Code Onset Dates Condition S tatus SNOMED Code Problem Unspecified breast screening V76.10 A ctive 853670761 Problem Unspecified contraceptive management V25.9 Active 478819760 Problem Counseling on substance use and abuse V65.42 Active 726588261 Problem Abdominal pain, unspecified site 789.00 Active 66830028 Problem examination or test, negative result V72.41 Active 028266668 Problem Other and unspecified ovarian cyst 620.2 Active 26913825 Problem Acute gastritis without mention of hemorrhage 535.00 Active 89410600 Problem Acute upper respiratory infections of unspecified site 465.9 Active 50690209 Problem Unspecified anemia 285.9 Active 2 68549203 Problem Leukorrhea, not specified as infective 623.5 Active 809657291 Problem Allergic rhinitis J30.9 Active 61 324534 Problem Other malaise and fatigue 780.79 Acti ve 602263983 Problem Acute sinusitis, unspecified 461.9 A ctive 70600447 Problem Allergic rhinitis due to pollen 477.0 Active 88937522 Problem Depressive disorder, not elsewhere classified 311 Active 18818285 Problem Nondependent tobacco use disorder 305.1 Active 442650309 ALLERGIES No Information ENCOUNTERS Encounter Location Date Diagnosis [facility] [address] [place] [facility] [place] [address] Jul, Pre-employment health screening examinat ion Z02.1 [facility] [address] [place] [facility] [place] [address] Jul, Allergic rhinitis J30.9 [facility] [address] [place] [address] 08 Feb, 18 Abdomen enlarged R19.8 [facility] [address] [facility] [id number] [address] [place] [address] Jul, [facility] [address] [id number] [address] [place] [address], [place] [address] Jul, [facility] [address] [id number] [address] [place] [address] Mar, [facility] [place] [address] [place] [facility] [place] [address] Mar, [facility] [place] [address] [place] [facility] [place] [address] Feb, [facility] [address] [id number] [address] [place] [address], [place] [address] Feb, [facility] [address] [id number] [address] [place] [address], [place] [address] Dec, [facility] [address] [id number] [address] [place] [address], [place] [address] Dec, [facility] [address] [id number] [address] [place] [address], [place] [address] Dec, [facility] [address] [id number] [address] [place] [address], [place] [address] Dec, [facility] [address] [id number] [address] [place] [address], [place] [address] Dec, [facility] [address] [id number] [address] [place] [address], [place] [address] Dec, [facility] [address] [id number] [address] [place] [address] Dec, [facility] [address] [id number] [address] [place] [address], [place] [address] Oct, [facility] [address] [id number] [address] [place] [address], [place] [address] Oct, [facility] [address] [id number] [address] [place] [address], [place] [address] August, [facility] [address] [id number] [address] [place] [address] August, [facility] [place] [address] [facility] [place] [address] 14 Jul, [facility] [address] [id number] [address] [place] [address], [place] [address] 14 Jul, 2013 [facility] [address] [id number] [address] [place] [address], [place] [address] Jun, [facility] [address] [id number] [address] [place] [address], [place] [address] 24 Jun, 2012 [facility] [address] [id number] [address] [place] [address], [place] [address] Jun, [facility] [address] [id number] [address] [place] [address], [place] [address] Jan, [facility] [address] [id number] [address] [place] [address], [place] [address] Jan, [facility] [address] [id number] [address] [place] [address], [place] [address] 09 Jan, 2012 [facility] [address] [id number] [address] [place] [address] 14 Dec, 2011 [facility] [address] [id number] [address] [place] [address], [place] [address] 13 Dec, 2011 [facility] [address] [id number] [address] [place] [address], [place] [address] 11 Dec, 2011 [facility] [address] [id number] [address] [place] [address], [place] [address] 07 Dec, 2011 [facility] [address] [id number] [address] [place] [address], [place] [address] 05 Dec, 2011 [facility] [address] [id number] [address] [place] [address], [place] [address] Dec, [facility] [address] [id number] [address] [place] [address], [place] [address] Nov, [facility] [address] [id number] [address] [place] [address] Nov, [facility] [address] [id number] [address] [place] [address] Oct, [facility] [address] [id number] [address] [place] [address] Jun, [facility] [address] [id number] [address] [place] [address] Jun, [facility] [address] [id number] [address] [place] [address] Jun, [facility] [address] [id number] [address] [place] [address] Jun, [facility] [address] [id number] [address] [place] [address] Feb, [facility] [address] [id number] [address] [place] [address] Feb, [facility] [address] [id number] [address] [place] [address] Jun, IMMUNIZATIONS No Known Immunizations SOCIAL HISTORY Never Assessed REASON FOR VISIT [facility] [place] VITAL SIGNS MEDICATIONS No [...]
--- OUTSIDE RECORDS SUMMARY | 2019-09-13 09:16 | XMS REPORT ---
Author Author Gracie Mancera Doctor Organization [facility] Address Unknown Phone Unavailable Care Team Providers Care Shear Tender Name Role Phone Migration, Doctor Unavailable Unavailable PROBLEMS Type Condition ICD9-CM Code UIL77-GO Code Onset Dates Condition S tatus SNOMED Code Problem Counseling on substance use and abuse V65.42 Active 503698400 Problem Unspecified breast screening V76.10 A ctive 493263247 Problem examination or test, negative result V72.41 Active 875242581 Problem Unspecified contraceptive management V25.9 Active 893050354 Problem Leukorrhea, not specified as infective 623.5 Active 225318830 Problem Other and unspecified ovarian cyst 620.2 Active 40506470 Problem Acute gastritis without mention of hemorrhage 535.00 Active 86928371 Problem Nondependent tobacco use disorder 305.1 Active 441040697 Problem Other malaise and fatigue 780.79 Acti ve 668473668 Problem Unspecified anemia 285.9 Active 2 99127069 Problem Abdominal pain, unspecified site 789.00 Active 52639482 Problem Acute upper respiratory infections of unspecified site 465.9 Active 57727750 Problem Acute sinusitis, unspecified 461.9 A ctive 74233051 Problem Allergic rhinitis due to pollen 477.0 Active 74625178 Problem Depressive disorder, not elsewhere classified 311 Active 07987793 ALLERGIES No Information ENCOUNTERS Encounter Location Date Diagnosis [facility] [address] [place] [address] Feb, 18 Abdomen enlarged R19.8 [facility] [address] [facility] [id number] [address] [place] [address] Jul, [facility] [address] [place] [id number] [address] [place] [address] Jul, [facility] [address] [facility] [id number] [address] [place] [address] Mar, [facility] [address] [place] [address] Mar, 14 [facility] [place] [address] [facility] [address] Feb, 14 [facility] [address] [id number] [address] [place] [address], [place] [address] Feb, [facility] [address] [id number] [facility] [place] [address] Dec, [facility] [address] [id number] [address] [place] [address], [place] [address] Dec, [facility] [address] [id number] [address] [place] [address], [place] [address] Dec, [facility] [address] [id number] [address] [place] [address], [place] [address] Dec, [facility] [address] [id number] [address] [place] [address], [place] [address] Dec, [facility] [address] [id number] [address] [place] [address], [place] [address] Dec, [facility] [address] [id number] [address] [place] [address], [place] [address] Dec, [facility] [address] [id number] [address] [place] [address], [place] [address] Oct, [facility] [address] [id number] [address] [place] [address], [place] [address] Oct, [facility] [address] [id number] [address] [place] [address], [place] [address] August, [facility] [address] [id number] [address] [place] [address], [place] [address] August, [facility] [address] [facility] [address] Jul, 14 [facility] [address] [id number] [address] [place] [address], [place] [address] Jul, [facility] [address] [id number] [address] [place] [address], [place] [address] 28 Jun, 2012 [facility] [address] [id number] [address] [place] [address], [place] [address] 24 Jun, 2012 [facility] [address] [id number] [address] [place] [address], [place] [address] 20 Jun, 2012 [facility] [address] [id number] [address] [place] [address], [place] [address] 10 Jan, 2012 [facility] [address] [id number] [address] [place] [address], [place] [address] 10 Jan, 2012 [facility] [address] [id number] [address] [place] [address], [place] [address] 09 Jan, 2012 [facility] [address] [id number] [address] [place] [address], [place] [address] 14 Dec, 2011 [facility] [address] [id number] [address] [place] [address], [place] [address] 13 Dec, 2011 [facility] [address] [id number] [address] [place] [address], [place] [address] 11 Dec, 2011 [facility] [address] [id number] [address] [place] [address], [place] [address] 07 Dec, 2011 [facility] [address] [id number] [address] [place] [address], [place] [address] 05 Dec, 2011 [facility] [address] [id number] [address] [place] [address], [place] [address] 01 Dec, 2011 [facility] [address] [id number] [address] [place] [address], [place] [address] 31 Nov, 2011 [facility] [address] [id number] [address] [place] [address], [place] [address] 28 Nov, 2011 [facility] [address] [id number] [address] [place] [address], [place] [address] 27 Oct, 2011 [facility] [address] [id number] [address] [place] [address], [place] [address] 13 Jun, 2011 [facility] [address] [facility] [id number] [address] [place] [address] Jun, [facility] [address] [facility] [id number] [address] [place] [address] Jun, [facility] [address] [facility] [id number] [address] [place] [address] Jun, [facility] [address] [facility] [id number] [address] [place] [address] Feb, [facility] [address] [facility] [id number] [address] [place] [address] Feb, [facility] [address] [facility] [id number] [address] [place] [address] Jun, IMMUNIZATIONS No Known Immunizations SOCIAL HISTORY Never Assessed REASON FOR VISIT EMR-[facility] PLAN OF CARE VITAL SIGNS MEDICATIONS Unknown Medications RESULTS No Results PROCEDURES No Known procedures INSTRUCTIONS MEDICATIONS ADMINISTERED No Known Medications MEDICAL (GENERAL) HISTORY Type Description Date Surgical History No Surgical history information
--- OUTSIDE RECORDS SUMMARY | 2019-09-13 09:16 | XMS REPORT ---
Author Author Gracie TRISTAN [facility] Address [address] [place] [address] Care Team Providers Care Photoengraving Supervisor Name Role Phone ARINA TRISTAN Unavailable PROBLEMS Type Condition ICD9-CM Code JAC98-IN Code Onset Dates Condition S tatus SNOMED Code Problem Leukorrhea, not specified as infective 623.5 Active 355271425 Problem Acute gastritis without mention of hemorrhage 535.00 Active 91194009 Problem Other and unspecified ovarian cyst 620.2 Active 48053536 Problem Unspecified anemia 285.9 Active 2 61619735 Problem Nondependent tobacco use disorder 305.1 Active 128476821 Problem Acute sinusitis, unspecified 461.9 A ctive 58840216 Problem Acute upper respiratory infections of unspecified site 465.9 Active 84711187 Problem Depressive disorder, not elsewhere classified 311 Active 89447024 Problem Allergic rhinitis due to pollen 477.0 Active 44442022 Problem Unspecified contraceptive management V25.9 Active 344698133 Problem examination or test, negative result V72.41 Active 600601973 Problem Unspecified breast screening V76.10 A ctive 971676139 Problem Abdominal pain, unspecified site 789.00 Active 32092435 Problem Counseling on substance use and abuse V65.42 Active 180882611 Problem Other malaise and fatigue 780.79 Acti ve 466435688 ALLERGIES Substance Reaction Event Type Date Status Chantix 1 Mg Tablet Increased depression. Non Drug Allergy Feb, Active ENCOUNTERS Encounter Location Date Diagnosis [facility] [address] [place] [address] Feb, [address] [facility] [address] [facility] [id number] [address] [place] [address] Jul, [facility] [address] [facility] [id number] [address] [place] [address] Jul, [facility] [address] [id number] [address] [place] [address], [place] [address] Mar, [facility] [place] [address] [facility] [place] [address] Mar, [facility] [place] [address] [place] [facility] [place] [address] Feb, 14 [facility] [address] [id number] [address] [place] [address], [place] [address] Feb, [facility] [address] [id number] [address] [place] [address], [place] [address] Dec, [facility] [address] [id number] [address] [place] [address], [place] [address] Dec, [facility] [address] [id number] [address] [place] [address], [place] [address] Dec, [facility] [address] [id number] [address] [place] [address], [place] [address] Dec, [facility] [address] [id number] [address] [place] [address], [place] [address] Dec, [facility] [address] [id number] [address] [place] [address], [place] [address] Dec, [facility] [address] [id number] [address] [place] [address], [place] [address] Dec, [facility] [address] [id number] [address] [place] [address], [place] [address] Oct, [facility] [address] [id number] [address] [place] [address], [place] [address] Oct, [facility] [address] [id number] [address] [place] [address], [place] [address] August, [facility] [address] [id number] [address] [place] [address], [place] [address] August, [facility] [address] [facility] [place] [address] 14 Apr, 20 14 [facility] [address] [id number] [address] [place] [address], [place] [address] 14 Jul, 2013 [facility] [address] [id number] [address] [place] [address], [place] [address] 28 Jun, 2012 [facility] [address] [id number] [address] [place] [address], [place] [address] 24 Jun, 2012 [facility] [address] [id number] [address] [place] [address], [place] [address] 20 Jun, 2012 [facility] [address] [id number] [address] [place] [address], [place] [address] 10 Jan, 2012 [facility] [address] [id number] [address] [place] [address], [place] [address] 10 Jan, 2012 [facility] [address] [id number] [address] [place] [address], [place] [address] 09 Jan, 2012 [facility] [address] [id number] [address] [place] [address], [place] [address] 14 Dec, 2011 [facility] [address] [id number] [address] [place] [address], [place] [address] 13 Dec, 2011 [facility] [address] [id number] [address] [place] [address], [place] [address] 11 Dec, 2011 [facility] [address] [id number] [address] [place] [address], [place] [address] 07 Dec, 2011 [facility] [address] [id number] [address] [place] [address], [place] [address] 05 Sep, 2011 [facility] [address] [id number] [address] [place] [address], [place] [address] Dec, [facility] [address] [id number] [address] [place] [address], [place] [address] 31 Nov, 2011 [facility] [address] [id number] [address] [place] [address], [place] [address] 28 Nov, 2011 [facility] [address] [id number] [address] [place] [address] Oct, [facility] [address] [id number] [address] [place] [address] Jun, [facility] [address] [id number] [address] [place] [address] Jun, [facility] [address] [id number] [address] [place] [address] Jun, [facility] [address] [id number] [address] [place] [address] Jun, [facility] [address] [id number] [address] [place] [address] Feb, [facility] [address] [facility] [id number] [address] [place] [address] Feb, [facility] [address] [facility] [id number] [address] [place] [address] Jun, IMMUNIZATIONS No Known Immunizations SOCIAL HISTORY Never Assessed REASON FOR VISIT having troubole getting , also wants to talk to you about weight, Nighat guerrero, has also been breaking out in hyves when she stays at her parents farm Nighat guerrero PLAN OF CARE Activity Details Follow Up w/ PCP Reason:inability to c onceive VITAL SIGNS Height 64 in 2018-03-01 Weight 136.7 lbs 2018-03-01 Temperature 98.6 degrees Fahrenheit 2018-03-01 Heart Rate 117 bpm 2018-03-01 Respiratory Rate 18 2018-03-01 BMI 23.46 kg/m2 2018-03-01 Blood pressure systolic 146 mmHg 2018-03-01 Blood pressure diastolic 74 mmHg 2018-03-01 MEDICATIONS Medication Instructions Dosage Frequency Start Date End Date Duration S tatus Iron 325 mg (65 mg iron) 1 Tablet 1 time per day August, Not-Taking Singulair 10 mg 1 tablet by Oral route 1 time per day Dec, Active Nasacort 55 mcg Dec, Not -Taking Zoloft 100 MG Orally Once a day 1 tablet 24h 30 day( s) Active Azithromycin 250 mg 2 Tablet by Oral rou te on day 1 then take 1 daily for 5 days August, Not-Taking RESULTS Name Result Date Reference Range TEST, URINE (IN HOUSE) RESULTS Negative Lot # [id number] Control valid Exp date 08/22/2019 PROCEDURES Procedure Date Ordered Result Body Site URINE TEST Mar 01, 2018 INSTRUCTIONS MEDICATIONS ADMINISTERED No Known Medications MEDICAL (GENERAL) HISTORY Type Description Date Surgical History No Surgical history information
--- OUTSIDE RECORDS SUMMARY | 2019-09-13 09:16 | XMS REPORT ---
Author Author Gracie Mancera Doctor Organization [facility] Address Unknown Phone Unavailable Care Team Providers Care Data Warehouse Architect Name Role Phone Migration, Doctor Unavailable Unavailable PROBLEMS Type Condition ICD9-CM Code QFM11-CI Code Onset Dates Condition S tatus SNOMED Code Problem Counseling on substance use and abuse V65.42 Active 980131685 Problem Unspecified breast screening V76.10 A ctive 370721085 Problem examination or test, negative result V72.41 Active 191809703 Problem Unspecified contraceptive management V25.9 Active 216695602 Problem Leukorrhea, not specified as infective 623.5 Active 169410095 Problem Other and unspecified ovarian cyst 620.2 Active 27263597 Problem Acute gastritis without mention of hemorrhage 535.00 Active 72313442 Problem Nondependent tobacco use disorder 305.1 Active 906699217 Problem Other malaise and fatigue 780.79 Acti ve 249441313 Problem Unspecified anemia 285.9 Active 2 31824788 Problem Abdominal pain, unspecified site 789.00 Active 22192315 Problem Acute upper respiratory infections of unspecified site 465.9 Active 31518770 Problem Acute sinusitis, unspecified 461.9 A ctive 43916957 Problem Allergic rhinitis due to pollen 477.0 Active 31349712 Problem Depressive disorder, not elsewhere classified 311 Active 41548920 ALLERGIES No Information ENCOUNTERS Encounter Location Date Diagnosis [facility] [address] [place] [address] Feb, 18 Abdomen enlarged R19.8 [facility] [address] [facility] [id number] [address] [place] [address] Jul, [facility] [address] [place] [id number] [address] [place] [address] Jul, [facility] [address] [facility] [id number] [address] [place] [address] Mar, [facility] [address] [place] [address] Mar, 14 [facility] [place] [address] [facility] [place] [address] Feb, 14 [facility] [address] [id number] [address] [place] [address], [place] [address] Feb, [facility] [address] [id number] [facility] [place] [address] Dec, [facility] [address] [id number] [address] [place] [address], [place] [address] Dec, [facility] [address] [id number] [address] [place] [address], [place] [address] Dec, [facility] [address] [id number] [address] [place] [address], [place] [address] Dec, [facility] [address] [id number] [address] [place] [address], [place] [address] Dec, [facility] [address] [id number] [address] [place] [address], [place] [address] Dec, [facility] [address] [id number] [address] [place] [address], [place] [address] Dec, [facility] [address] [id number] [address] [place] [address], [place] [address] Oct, [facility] [address] [id number] [address] [place] [address], [place] [address] Oct, [facility] [address] [id number] [address] [place] [address], [place] [address] August, [facility] [address] [id number] [address] [place] [address], [place] [address] August, [facility] [place] [address] [facility] [place] [address] Jul, 14 [facility] [address] [id number] [address] [place] [address], [place] [address] Jul, [facility] [address] [id number] [address] [place] [address], [place] [address] 28 Jun, 2012 [facility] [address] [id number] [address] [place] [address], [place] [address] 24 Jun, 2012 [facility] [address] [id number] [address] [place] [address], [place] [address] 20 Jun, 2012 [facility] [address] [id number] [address] [place] [address], [place] [address] 10 Jan, 2012 [facility] [address] [id number] [address] [place] [address], [place] [address] 10 Jan, 2012 [facility] [address] [id number] [address] [place] [address], [place] [address] 09 Jan, 2012 [facility] [address] [id number] [address] [place] [address], [place] [address] 14 Dec, 2011 [facility] [address] [id number] [address] [place] [address], [place] [address] 13 Dec, 2011 [facility] [address] [id number] [address] [place] [address], [place] [address] 11 Dec, 2011 [facility] [address] [id number] [address] [place] [address], [place] [address] 07 Dec, 2011 [facility] [address] [id number] [address] [place] [address], [place] [address] 05 Dec, 2011 [facility] [address] [id number] [address] [place] [address], [place] [address] 01 Dec, 2011 [facility] [address] [id number] [address] [place] [address], [place] [address] 31 Nov, 2011 [facility] [address] [id number] [address] [place] [address], [place] [address] 28 Nov, 2011 [facility] [address] [id number] [address] [place] [address], [place] [address] 27 Oct, 2011 [facility] [address] [id number] [address] [place] [address], [place] [address] 13 Jun, 2011 [facility] [address] [facility] [id number] [address] [place] [address] Jun, [facility] [address] [facility] [id number] [address] [place] [address] Jun, [facility] [address] [facility] [id number] [address] [place] [address] Jun, [facility] [address] [facility] [id number] [address] [place] [address] Feb, [facility] [address] [facility] [id number] [address] [place] [address] Feb, [facility] [address] [facility] [id number] [address] [place] [address] Jun, IMMUNIZATIONS No Known Immunizations SOCIAL HISTORY Never Assessed REASON FOR VISIT EMR-[facility] PLAN OF CARE VITAL SIGNS MEDICATIONS Unknown Medications RESULTS No Results PROCEDURES No Known procedures INSTRUCTIONS MEDICATIONS ADMINISTERED No Known Medications MEDICAL (GENERAL) HISTORY Type Description Date Surgical History No Surgical history information
--- OUTSIDE RECORDS SUMMARY | 2019-09-13 09:16 | XMS REPORT ---
Author Author Gracie Mancera Doctor Organization [facility] Address Unknown Phone Unavailable Care Team Providers Care Discharging Machine Operator Name Role Phone Migration, Doctor Unavailable Unavailable PROBLEMS Type Condition ICD9-CM Code ZZA35-NE Code Onset Dates Condition S tatus SNOMED Code Problem Unspecified breast screening V76.10 A ctive 181245441 Problem Unspecified contraceptive management V25.9 Active 832845165 Problem Counseling on substance use and abuse V65.42 Active 450026132 Problem Abdominal pain, unspecified site 789.00 Active 55522790 Problem examination or test, negative result V72.41 Active 636161594 Problem Other and unspecified ovarian cyst 620.2 Active 85838930 Problem Acute gastritis without mention of hemorrhage 535.00 Active 47054678 Problem Acute upper respiratory infections of unspecified site 465.9 Active 81200149 Problem Unspecified anemia 285.9 Active 2 62224817 Problem Leukorrhea, not specified as infective 623.5 Active 595218081 Problem Allergic rhinitis J30.9 Active 61 527928 Problem Other malaise and fatigue 780.79 Acti ve 329401067 Problem Acute sinusitis, unspecified 461.9 A ctive 84922040 Problem Allergic rhinitis due to pollen 477.0 Active 44457149 Problem Depressive disorder, not elsewhere classified 311 Active 39043174 Problem Nondependent tobacco use disorder 305.1 Active 932139606 ALLERGIES No Information ENCOUNTERS Encounter Location Date Diagnosis [address] [id number] August, [address] [address] August, [facility] IN [facility] [address] [place] [address] August, Allergic rhinitis J30.9 [facility] IN [facility] [address] [place] [address] Jul, Pre-employment health screening examinat ion Z02.1 [facility] [address] [facility] [place] [address] Jul, [facility] J30.9 [facility] [address] [place] [address] Feb, 18 Abdomen [facility] R19.8 [facility] [address] [facility] [id number] [address] [place] [id number] 14 Jul, 2014 [facility] [address] [facility] [id number] [address] [place] [address] Jul, [facility] [address] [facility] [id number] [address] [place] [address] Mar, [facility] [address] [place] [address] Mar, [facility] [address] [place] [address] Feb, 14 [facility] [address] [facility] [id number] [address] [place] [address] Feb, [facility] [address] [id number] [address] [place] [address] Dec, [facility] [address] [id number] [address] [place] [address] Dec, [facility] [address] [facility] [id number] [address] [place] [address] Dec, [facility] [address] [id number] [address] [place] [address] 18 Dec, 2013 [facility] [address] [id number] [address] [place] [address] 18 Dec, 2013 [facility] [address] [id number] [address] [place] [address] Dec, [facility] [address] [facility] [id number] [address] [place] [address] Dec, [facility] [address] [id number] [address] [place] [address] Oct, [facility] [address] [id number] [address] [place] [address], [place] [address] Oct, [facility] [address] [id number] [address] [place] [address], [place] [address] August, [facility] [address] [id number] [address] [place] [address], [place] [address] August, [facility] [address] [facility] [place] [address] Jul, [facility] [address] [id number] [address] [place] [address], [place] [address] Jul, [facility] [address] [id number] [address] [place] [address], [place] [address] Jun, [facility] [address] [id number] [address] [place] [address], [place] [address] Jun, [facility] [address] [id number] [address] [place] [address], [place] [address] Jun, [facility] [address] [id number] [address] [place] [address], [place] [address] Jan, [facility] [address] [id number] [address] [place] [address], [place] [address] Jan, [facility] [address] [id number] [address] [place] [address], [place] [address] Jan, [facility] [address] [id number] [address] [place] [address], [place] [address] 14 Dec, 2011 [facility] [address] [id number] [address] [place] [address], [place] [address] 13 Dec, 2011 [facility] [address] [id number] [address] [place] [address], [place] [address] 11 Dec, 2011 [facility] [address] [id number] [address] [place] [address], [place] [address] 07 Dec, 2011 [facility] [address] [id number] [address] [place] [address] 05 Dec, 2011 [facility] [address] [id number] [address] [place] [address] Dec, [facility] [address] [id number] [address] [place] [address] Nov, [facility] [address] [id number] [address] [place] [address] Nov, [facility] [address] [id number] [address] [place] [address] Oct, [facility] [address] [id number] [address] [place] [id number] Jun, [facility] [address] [id number] [address] [place] [address] Jun, [facility] [address] [id number] [address] [place] [address] Jun, [facility] [address] [id number] [address] [place] [address] Jun, [facility] [address] [id number] [address] [place] [address] Feb, [facility] [address] [id number] [address] [place] [address] Feb, [facility] [address] [id number] [address] [place] [address] 15 Jun, 2010 IMMUNIZATIONS No Known Immunizations SOCIAL HISTORY Never Assessed REASON FOR VISIT [facility] PLAN OF CARE VITAL [...]
--- OUTSIDE RECORDS SUMMARY | 2019-09-13 09:17 | XMS REPORT | Continuity of Care Document ---
Author Organization Unknown Address Unknown Phone Unavailable Allergies Active Description Code Type Severity Reaction Onset Reported/Identified Relationship to Patient Clinical Status Yes codeine Drug Allergy 07/06/2010 Yes codeine Drug Allergy N/A N/A 07/06/2010 Yes Chantix 1 mg tablet Drug Aller gy N/A N/A 03/24/2014 Yes No Known Drug Allergies [id number] Drug Allergy Unknown N/A 05/19/2019 Medications There is no data. Problems Date Dx Coded Attending Type Code Diagnosis Diagnosed By 03/23/1433 MICHAEL LÓPEZ DO Ot Z01.818 ENCOUNTER FOR OTHER PREPROCEDURAL EXAMIN 03/23/1433 MICHAEL LÓPEZ DO Ot Z11.59 ENCOUNTER FOR SCREENING FOR OTHER VIRAL 07/06/2010 780.2 SYNC OPE AND COLLAPSE 07/06/2010 794.31 ABN ORMAL EKG ELECTROCARDIOGRAM (ECG) 07/06/2010 V25.41 DOLLY VEILLANCE OF CONTRACEPTIVE PILL 07/06/2010 V65.45 STD COUNSELING 07/06/2010 V72.31 METAPHYSICS TEACHER EXAM, ROUTINE 07/06/2010 V74.5 STD SCREEN 07/06/2010 DAYA QURESHI DO 780.2 SYNCOPE AND COLLAPSE 07/06/2010 DAYA QURESHI DO 794.31 ABNORMAL EKG ELECTROCARDIOGRAM (ECG) 07/06/2010 DAYA QURESHI DO V25.41 SURVEILLANCE OF CONTRACEPTIVE PILL 07/06/2010 DAYA QURESHI DO V65.45 STD COUNSELING 07/06/2010 DAYA QURESHI DO V72.31 METAPHYSICS TEACHER EXAM, ROUTINE 07/06/2010 DAYA QURESHI DO V74.5 STD SCREEN 07/06/2010 ADEBAYO SANTAMARIA MD 780.2 SYNCOPE AND COLLAPSE 07/06/2010 ADEBAYO SANTAMARIA MD 794.3 1 ABNORMAL EKG ELECTROCARDIOGRAM (ECG) 07/06/2010 ADEBAYO SANTAMARIA MD V25.4 1 SURVEILLANCE OF CONTRACEPTIVE PILL 07/06/2010 ADEBAYO SANTAMARIA MD V65.4 5 STD COUNSELING 07/06/2010 SINGER LEWIS, ADEBAYO Cooper V72.3 1 METAPHYSICS TEACHER EXAM, ROUTINE 07/06/2010 ADEBAYO SANTAMARIA MD V74.5 STD SCREEN 07/06/2010 QURESHI DAYA K 780.2 SYNCOPE AND COLLAPSE 07/06/2010 QURESHI , DAYA K 794.31 ABNORMAL EKG ELECTROCARDIOGRAM (ECG) 07/06/2010 QURESHI DAYA K V25.41 SURVEILLANCE OF CONTRACEPTIVE PILL 07/06/2010 QURESHI , DAYA K V65.45 STD COUNSELING 07/06/2010 QURESHI , DAYA K V72.31 METAPHYSICS TEACHER EXAM, ROUTINE 07/06/2010 QURESHI DAYA K V74.5 STD SCREEN 07/06/2010 VALERIA CUTLER APRN 78 0.2 SYNCOPE AND COLLAPSE 07/06/2010 VALERIA CUTLER APRN 794.31 ABNORMAL EKG ELECTROCARDIOGRAM (ECG) 07/06/2010 VALERIA CUTLER APRN V25.41 SURVEILLANCE OF CONTRACEPTIVE PILL 07/06/2010 VALERIA CUTLER APRN V65.45 STD COUNSELING 07/06/2010 VALERIA CUTLER APRN V72.31 METAPHYSICS TEACHER EXAM, ROUTINE 07/06/2010 VALERIA CUTLER APRN V7 4.5 STD SCREEN 07/06/2010 INES PALM KURTIS R 780.2 SYNCOPE AND COLLAPSE 07/06/2010 INES PALM, KURTIS R 794.31 ABNORMAL EKG ELECTROCARDIOGRAM (ECG) 07/06/2010 INES PALM KURTIS R V25.41 SURVEILLANCE OF CONTRACEPTIVE PILL 07/06/2010 INES CHAIR INSPECTOR AND LEVELER KURTIS R V65.45 STD COUNSELING 07/06/2010 INES CHAIR INSPECTOR AND LEVELER KURTIS R V72.31 METAPHYSICS TEACHER EXAM, ROUTINE 07/06/2010 INES CHAIR INSPECTOR AND LEVELER, KURTIS R V74.5 STD SCREEN 07/06/2010 INES CHAIR INSPECTOR AND LEVELER, KURTIS R 780.2 SYNCOPE AND COLLAPSE 07/06/2010 INES CHAIR INSPECTOR AND LEVELER, KURTIS R 794.31 ABNORMAL EKG ELECTROCARDIOGRAM (ECG) 07/06/2010 INES CHAIR INSPECTOR AND LEVELER KURTIS R V25.41 SURVEILLANCE OF CONTRACEPTIVE PILL 07/06/2010 INES CHAIR INSPECTOR AND LEVELER, KURTIS R V65.45 STD COUNSELING 07/06/2010 INES CHAIR INSPECTOR AND LEVELER, KURTIS R V72.31 METAPHYSICS TEACHER EXAM, ROUTINE 07/06/2010 INES CHAIR INSPECTOR AND LEVELER, KURTIS R V74.5 STD SCREEN 07/06/2010 780.2 SYNC OPE AND COLLAPSE 07/06/2010 794.31 ABN ORMAL EKG ELECTROCARDIOGRAM (ECG) 07/06/2010 V25.41 DOLLY VEILLANCE OF CONTRACEPTIVE PILL 07/06/2010 V65.45 STD COUNSELING 07/06/2010 V72.31 METAPHYSICS TEACHER EXAM, ROUTINE 07/06/2010 V74.5 STD SCREEN 07/06/2010 ADEBAYO SANTAMARIA MD 780.2 SYNCOPE AND COLLAPSE 07/06/2010 ADEBAYO SANTAMARIA MD 794.3 1 ABNORMAL EKG ELECTROCARDIOGRAM (ECG) 07/06/2010 ADEBAYO SANTAMARIA MD V25.4 1 SURVEILLANCE OF CONTRACEPTIVE PILL 07/06/2010 ADEBAYO SANTAMARIA MD V65.4 5 STD COUNSELING 07/06/2010 ADEBAYO SANTAMARIA MD V72.3 1 METAPHYSICS TEACHER EXAM, ROUTINE 07/06/2010 ADEBAYO SANTAMARIA MD V74.5 STD SCREEN 07/06/2010 ADEBAYO SANTAMARIA MD 780.2 SYNCOPE AND COLLAPSE 07/06/2010 ADEBAYO SANTAMARIA MD 794.3 1 ABNORMAL EKG ELECTROCARDIOGRAM (ECG) 07/06/2010 ADEBAYO SANTAMARIA MD V25.4 1 SURVEILLANCE OF CONTRACEPTIVE PILL 07/06/2010 ADEBAYO SANTAMARIA MD V65.4 5 STD COUNSELING 07/06/2010 ADEBAYO SANTAMARIA MD V72.3 1 METAPHYSICS TEACHER EXAM, ROUTINE 07/06/2010 ADEBAYO SANTAMARIA MD V74.5 STD SCREEN 02/23/2011 295.10 P S CHIZO DISORG UNSPECIFIED 02/23/2011 DAYA QURESHI DO 295.10 P SCHIZO DISORG UNSPECIFIED 02/23/2011 ADEBAYO SANTAMARIA MD 295.1 0 P SCHIZO DISORG UNSPECIFIED 02/23/2011 DAYA QURESHI DO 295.10 P SCHIZO DISORG UNSPECIFIED 02/23/2011 VALERIA CUTLER APRN 295.10 P SCHIZO DISORG UNSPECIFIED 02/23/2011 KURTIS CHACON APRN 295.10 P SCHIZO DISORG UNSPECIFIED 02/23/2011 KURTIS CHACON APRN 295.10 P SCHIZO DISORG UNSPECIFIED 02/23/2011 295.10 P S CHIZO DISORG UNSPECIFIED 02/23/2011 ADEBAYO SANTAMARIA MD 295.1 0 P SCHIZO DISORG UNSPECIFIED 02/23/2011 ADEBAYO SANTAMARIA MD 295.1 0 P SCHIZO DISORG UNSPECIFIED 03/02/2011 V04.81 FLU DX (3 YRS AND ABOVE, IM) 03/02/2011 V65.3 DIET DUNG SURVEILLANCE AND COUNSELING 03/02/2011 QURESHI DO, DAYA K V04.81 FLU DX (3 YRS AND ABOVE, IM) 03/02/2011 QURESHI DO, DAYA K V65.3 DIETARY SURVEILLANCE AND COUNSELING 03/02/2011 ADEBAYO SANTAMARIA MD V04.8 1 FLU DX (3 YRS AND ABOVE, IM) 03/02/2011 ADEBAYO SANTAMARIA MD V65.3 DIETARY SURVEILLANCE AND COUNSELING 03/02/2011 QURESHI DO, DAYA K V04.81 FLU DX (3 YRS AND ABOVE, IM) 03/02/2011 QURESHI DO, DAYA K V65.3 DIETARY SURVEILLANCE AND COUNSELING 03/02/2011 VALERIA CUTLER APRN V04.81 FLU DX (3 YRS AND ABOVE, IM) 03/02/2011 VALERIA CUTLER APRN V6 5.3 DIETARY SURVEILLANCE AND COUNSELING 03/02/2011 INES PALM KURTIS R V04.81 FLU DX (3 YRS AND ABOVE, IM) 03/02/2011 INES PALM KURTIS R V65.3 DIETARY SURVEILLANCE AND COUNSELING 03/02/2011 INES PALM KURTIS R V04.81 FLU DX (3 YRS AND ABOVE, IM) 03/02/2011 ANGEL CHACON APRNINA R V65.3 DIETARY SURVEILLANCE AND COUNSELING 03/02/2011 V04.81 FLU DX (3 YRS AND ABOVE, IM) 03/02/2011 V65.3 DIET DUNG SURVEILLANCE AND COUNSELING 03/02/2011 ADEBAYO SANTAMARIA MD V04.8 1 FLU DX (3 YRS AND ABOVE, IM) 03/02/2011 ADEBAYO SANTAMARIA MD V65.3 DIETARY SURVEILLANCE AND COUNSELING 03/02/2011 ADEBAYO SANTAMARIA MD V04.8 1 FLU DX (3 YRS AND ABOVE, IM) 03/02/2011 ADEBAYO SANTAMARIA MD V65.3 DIETARY SURVEILLANCE AND COUNSELING 06/29/2011 V25.9 CONT RACEPTION MANAGEMENT 06/29/2011 V72.41 PRE GNANCY TEST NEGATIVE RESULT 06/29/2011 QURESHI DO, DAYA K V25.9 CONTRACEPTION MANAGEMENT 06/29/2011 QURESHI DO, DAYA K V72.41 TEST NEGATIVE RESULT 06/29/2011 ADEBAYO SANTAMARIA MD V25.9 CONTRACEPTION MANAGEMENT 06/29/2011 ADEBAYO SANTAMARIA MD V72.4 1 TEST NEGATIVE RESULT 06/29/2011 QURESHI DO, DAYA K V25.9 CONTRACEPTION MANAGEMENT 06/29/2011 QURESHI DO, DAYA K V72.41 TEST NEGATIVE RESULT 06/29/2011 VALERIA CUTLER APRN V2 5.9 CONTRACEPTION MANAGEMENT 06/29/2011 VALERIA CUTLER APRN V72.41 TEST NEGATIVE RESULT 06/29/2011 INES PALM KURTIS R V25.9 CONTRACEPTION MANAGEMENT 06/29/2011 INES PALM KURTIS R V72.41 TEST NEGATIVE RESULT 06/29/2011 INES PALM KURTIS R V25.9 CONTRACEPTION MANAGEMENT 06/29/2011 INES PALM KURTIS R V72.41 TEST NEGATIVE RESULT 06/29/2011 V25.9 CONT RACEPTION MANAGEMENT 06/29/2011 V72.41 PRE GNANCY TEST NEGATIVE RESULT 06/29/2011 ADEBAYO SANTAMARIA MD V25.9 CONTRACEPTION MANAGEMENT 06/29/2011 ADEBAYO SANTAMARIA MD V72.4 1 TEST NEGATIVE RESULT 06/29/2011 ADEBAYO SANTAMARIA MD V25.9 CONTRACEPTION MANAGEMENT 06/29/2011 ADEBAYO SANTAMARIA MD V72.4 1 TEST NEGATIVE RESULT 11/18/2011 461.9 SINU SITIS ACUTE 11/18/2011 QURESHI DO, DAYA K 461.9 SINUSITIS ACUTE 11/18/2011 ADEBAYO SANTAMARIA MD 461.9 SINUSITIS ACUTE 11/18/2011 QURESHI DO, DAYA K 461.9 SINUSITIS ACUTE 11/18/2011 VALERIA CUTLER APRN 46 1.9 SINUSITIS ACUTE 11/18/2011 INES PALM KURTIS R 461.9 SINUSITIS ACUTE 11/18/2011 INES PALM KURTIS R 461.9 SINUSITIS ACUTE 11/18/2011 461.9 SINU SITIS ACUTE 11/18/2011 ADEBAYO SANTAMARIA MD 461.9 SINUSITIS ACUTE 11/18/2011 ADEBAYO SANTAMARIA MD 461.9 SINUSITIS ACUTE 12/20/2011 620.2 OTHE R AND UNSPECIFIED OVARIAN CYST 12/20/2011 789.00 ABD OMINAL PAIN UNSPECIFIED SITE 12/20/2011 QURESHI DO, DAYA K 620.2 OTHER AND UNSPECIFIED OVARIAN CYST 12/20/2011 QURESHI DO, DAYA K 789.00 ABDOMINAL PAIN UNSPECIFIED SITE 12/20/2011 ADEBAYO SANTAMARIA MD 620.2 OTHER AND UNSPECIFIED OVARIAN CYST 12/20/2011 ADEBAYO SANTAMARIA MD 789.0 0 ABDOMINAL PAIN UNSPECIFIED SITE 12/20/2011 QURESHI DO DAYA K 620.2 OTHER AND UNSPECIFIED OVARIAN CYST 12/20/2011 QURESHI DO, DAYA K 789.00 ABDOMINAL PAIN UNSPECIFIED SITE 12/20/2011 VALERIA CUTLER APRN 62 0.2 OTHER AND UNSPECIFIED OVARIAN CYST 12/20/2011 VALERIA CUTLER APRN 789.00 ABDOMINAL PAIN UNSPECIFIED SITE 12/20/2011 INES PALM, KURTIS R 620.2 OTHER AND UNSPECIFIED OVARIAN CYST 12/20/2011 INES CHAIR INSPECTOR AND LEVELER, KURTIS R 789.00 ABDOMINAL PAIN UNSPECIFIED SITE 12/20/2011 INES CHAIR INSPECTOR AND LEVELER, KURTIS R 620.2 OTHER AND UNSPECIFIED OVARIAN CYST 12/20/2011 INES BURROWSN, KURTIS R 789.00 ABDOMINAL PAIN UNSPECIFIED SITE 12/20/2011 620.2 OTHE R AND UNSPECIFIED OVARIAN CYST 12/20/2011 789.00 ABD OMINAL PAIN UNSPECIFIED SITE 12/20/2011 ADEBAYO SANTAMARIA MD 620.2 OTHER AND UNSPECIFIED OVARIAN CYST 12/20/2011 ADEBAYO SANTAMARIA MD 789.0 0 ABDOMINAL PAIN UNSPECIFIED SITE 12/20/2011 ADEBAYO SANTAMARIA MD 620.2 OTHER AND UNSPECIFIED OVARIAN CYST 12/20/2011 ADEBAYO SANTAMARIA MD 789.0 0 ABDOMINAL PAIN UNSPECIFIED SITE 01/31/2012 285.9 ANEMIA 01/31/2012 535.00 ACU TE GASTRITIS (WITHOUT HEMORRHAGE) 01/31/2012 TITUS PUGH DAYA K 285.9 ANEMIA 01/31/2012 TITUS PUGH DAYA K 535.00 ACUTE GASTRITIS (WITHOUT HEMORRHAGE) 01/31/2012 ADEBAYO SANTAMARIA MD 285.9 ANEMIA 01/31/2012 ADEBAYO SANTAMARIA MD 535.0 0 ACUTE GASTRITIS (WITHOUT HEMORRHAGE) 01/31/2012 QURESHI DO, DAYA K 285.9 ANEMIA 01/31/2012 QRUESHI DO, DAYA K 535.00 ACUTE GASTRITIS (WITHOUT HEMORRHAGE) 01/31/2012 VALERIA CUTLER APRN 28 5.9 ANEMIA 01/31/2012 VALERIA CUTLER APRN 535.00 ACUTE GASTRITIS (WITHOUT HEMORRHAGE) 01/31/2012 INES CHAIR INSPECTOR AND LEVELER, KURTIS R 285.9 ANEMIA 01/31/2012 INES BURROWSN, KURTIS R 535.00 ACUTE GASTRITIS (WITHOUT HEMORRHAGE) 01/31/2012 INES CHAIR INSPECTOR AND LEVELER, KURTIS R 285.9 ANEMIA 01/31/2012 INES BURROWSN, KURTIS R 535.00 ACUTE GASTRITIS (WITHOUT HEMORRHAGE) 01/31/2012 285.9 ANEMIA 01/31/2012 535.00 ACU TE GASTRITIS (WITHOUT HEMORRHAGE) 01/31/2012 ADEBAYO SANTAMARIA MD 285.9 ANEMIA 01/31/2012 ADEBAYO SANTAMARIA MD 535.0 0 ACUTE GASTRITIS (WITHOUT HEMORRHAGE) 01/31/2012 ADEBAYO SANTAMARIA MD 285.9 ANEMIA 01/31/2012 ADEBAYO SANTAMARIA MD 535.0 0 ACUTE GASTRITIS (WITHOUT HEMORRHAGE) 07/11/2012 TITUS PUGH DAYA K 305.1 TOBACCO ABUSE 07/11/2012 TITUS PUGH DAYA K 623.5 LEUKORRHEA NOT SPECIFIED INFECTIVE 07/11/2012 TITUS PUGH DAYA K V76.10 BREAST CANCER SCREENING 07/11/2012 ADEBAYO SANTAMARIA MD 305.1 TOBACCO ABUSE 07/11/2012 ADEBAYO SANTAMARIA MD 623.5 LEUKORRHEA NOT SPECIFIED INFECTIVE 07/11/2012 ADEBAYO SANTAMARIA MD V76.1 0 BREAST CANCER SCREENING 07/11/2012 TITUS PUGH DAYA K 305.1 TOBACCO ABUSE 07/11/2012 QURESHI DO DAYA K 623.5 LEUKORRHEA NOT SPECIFIED INFECTIVE 07/11/2012 QURESHI DO DAYA K V76.10 BREAST CANCER SCREENING 07/11/2012 VALERIA CUTLER APRN 30 5.1 TOBACCO ABUSE 07/11/2012 VALERIA CUTLER APRN 62 3.5 LEUKORRHEA NOT SPECIFIED INFECTIVE 07/11/2012 VALERIA CUTLER APRN V76.10 BREAST CANCER SCREENING 07/11/2012 KURTIS CHACON APRN R 305.1 TOBACCO ABUSE 07/11/2012 INES CHAIR INSPECTOR AND LEVELER, KURTIS R 623.5 LEUKORRHEA NOT SPECIFIED INFECTIVE 07/11/2012 INES PALM, KURTIS R V76.10 BREAST CANCER SCREENING 07/11/2012 INES PALM, KURTIS R 305.1 TOBACCO ABUSE 07/11/2012 INES PALM, KURTIS R 623.5 LEUKORRHEA NOT SPECIFIED INFECTIVE 07/11/2012 INES PALM KURTIS R V76.10 BREAST CANCER SCREENING 07/11/2012 ADEBAYO SANTAMARIA MD 305.1 TOBACCO ABUSE 07/11/2012 ADEBAYO SANTAMARIA MD 623.5 LEUKORRHEA NOT SPECIFIED INFECTIVE 07/11/2012 ADEBAYO SANTAMARIA MD V76.1 0 BREAST CANCER SCREENING 07/11/2012 ADEBAYO SANTAMARIA MD 305.1 TOBACCO ABUSE 07/11/2012 ADEBAYO SANTAMARIA MD 623.5 LEUKORRHEA NOT SPECIFIED INFECTIVE 07/11/2012 ADEBAYO SANTAMARIA MD V76.1 0 BREAST CANCER SCREENING 08/05/2013 ADEBAYO SANTAMARIA MD 311 DEPRESSIVE DISORDER NOS 08/05/2013 DAYA QURESHI DO 311 DEPRESSIVE DISORDER NOS 08/05/2013 VALERIA CUTLER APRN 31 1 DEPRESSIVE DISORDER NOS 08/05/2013 ANGEL CHACON APRNINA R 3 11 DEPRESSIVE DISORDER NOS 08/05/2013 INES PALM KURTIS R 3 11 DEPRESSIVE DISORDER NOS 08/05/2013 ADEBAYO SANTAMARIA MD 311 DEPRESSIVE DISORDER NOS 08/05/2013 ADEBAYO SANTAMARIA MD 311 DEPRESSIVE DISORDER NOS 11/13/2013 VALERIA CUTLER APRN 46 5.9 UPPER RESPIRATORY INFECTION 11/13/2013 INES PALM KURTIS R 465.9 UPPER RESPIRATORY INFECTION 11/13/2013 INES PALM KURTIS R 465.9 UPPER RESPIRATORY INFECTION 11/13/2013 ADEBAYO SANTAMARIA MD 465.9 UPPER RESPIRATORY INFECTION 11/13/2013 ADEBAYO SANTAMARIA MD 465.9 UPPER RESPIRATORY INFECTION 01/02/2014 INES PALM KURTIS R 477.0 ALLERGIC RHINITIS DUE TO POLLEN 01/02/2014 INES PALM, KURTIS R 780.79 OTHER MALAISE AND FATIGUE 01/02/2014 INES PALM KURTIS R 477.0 ALLERGIC RHINITIS DUE TO POLLEN 01/02/2014 INES PALM KURTIS R 780.79 OTHER MALAISE AND FATIGUE 01/02/2014 ADEBAYO SANTAMARIA MD 477.0 ALLERGIC RHINITIS DUE TO POLLEN 01/02/2014 ADEBAYO SANTAMARIA MD 780.7 9 OTHER MALAISE AND FATIGUE 01/02/2014 ADEBAYO SANTAMARIA MD 477.0 ALLERGIC RHINITIS DUE TO POLLEN 01/02/2014 ADEBAYO SANTAMARIA MD 780.7 9 OTHER MALAISE AND FATIGUE 03/07/2014 ADEBAYO SANTAMARIA MD V65.4 2 TOBACCO COUNSELING 03/07/2014 ADEBAYO SANTAMARIA MD V65.4 2 TOBACCO COUNSELING 02/25/2019 KIKE RODRIGUEZ MD, Ot Z34.80 ENCOUNTER FOR SUPRVSN OF NORMAL PREGNANC 02/25/2019 KIKE RODRIGUEZ MD, Ot Z3A.00 WEEKS OF GESTATION OF NOT SPEC 05/19/2019 KIKE RODRIGUEZ MD, Ot Z34.80 ENCOUNTER FOR SUPRVSN OF NORMAL PREGNANC 05/19/2019 KIKE RODRIGUEZ MD, Ot Z3A.00 WEEKS OF GESTATION OF NOT SPEC 05/19/2019 DEMETRIO ORTEGA DO, Ot M25.521 PAIN IN RIGHT ELBOW 05/19/2019 [facility] S50.11XA CONTUSION OF RIGHT FOREARM, INITIAL ENCO 05/19/2019 DEMETRIO ORTEGA DO, Ot W01.198A FALL SAME LEV FROM SLIP/TRIP W STRIKE AG 05/19/2019 DEMETRIO ORTEGA DO, Ot Y92.000 [facility] NON-INSTITUT (PRIVATE) R 05/19/2019 DEMETRIO ORTEGA DO, Ot Z90.89 ACQUIRED ABSENCE OF OTHER ORGANS 07/04/2019 KIKE RODRIGUEZ MD Ot Z34.80 ENCOUNTER FOR SUPRVSN OF NORMAL PREGNANC 07/04/2019 KIKE RODRIGUEZ MD Ot Z3A.00 WEEKS OF GESTATION OF NOT SPEC 07/17/2019 KIKE RODRIGUEZ MD Ot Z34.80 ENCOUNTER FOR SUPRVSN OF NORMAL PREGNANC 07/17/2019 KIKE RODRIGUEZ MD, Ot Z3A.00 WEEKS OF GESTATION OF NOT SPEC 07/17/2019 KIKE RODRIGUEZ MD Ot Z34.80 ENCOUNTER FOR SUPRVSN OF NORMAL PREGNANC 07/17/2019 KIKE RODRIGUEZ MD, Ot Z3A.00 WEEKS OF GESTATION OF NOT SPEC 07/20/2019 KIKE RODRIGUEZ MD Ot R73.09 OTHER ABNORMAL GLUCOSE 07/20/2019 KIKE RODRIGUEZ MD, Ot Z53 .8 PROCEDURE AND TREATMENT NOT CARRIED OUT 07/23/2019 KIKE RODRIGUEZ MD, Ot R73.09 OTHER ABNORMAL GLUCOSE 07/23/2019 KIKE RODRIGUEZ MD, Ot Z53 .8 PROCEDURE AND TREATMENT NOT CARRIED OUT 07/26/2019 KIKE RODRIGUEZ MD, Ot R73.09 OTHER ABNORMAL GLUCOSE 07/26/2019 KIKE RODRIGUEZ MD, Ot Z53 .8 PROCEDURE AND TREATMENT NOT CARRIED OUT 09/11/2019 FENECH MICHAEL PUGH S Ot Z01.818 ENCOUNTER FOR OTHER PREPROCEDURAL EXAMIN 09/11/2019 MARIZAECH MICHAEL PUGH S Ot Z11.59 ENCOUNTER FOR SCREENING FOR OTHER VIRAL 09/13/2019 KIKE RODRIGUEZ MD Ot Z34.80 ENCOUNTER FOR SUPRVSN OF NORMAL PREGNANC 09/13/2019 KIKE RODRIGUEZ MD, Ot Z3A.00 WEEKS OF GESTATION OF NOT SPEC 09/13/2019 KIKE RODRIGUEZ MD, Ot R73.09 OTHER ABNORMAL GLUCOSE 09/13/2019 KIKE RODRIGUEZ MD, Ot Z53 .8 PROCEDURE AND TREATMENT NOT CARRIED OUT Procedures Code Description [place] [address] GC/C HLAM PROBE ([facility]) 12/20/2011 04473 UA L SANDIP DIP 12/20/2011 54473 URIN E TEST (IN- HOUSE) 12/20/2011 45412 TRIC HOMONAS (IN-HOUSE) 12/20/2011 80632 CULT URE UROGENITAL 12/24/2011 87457 ROUT INE VENIPUNCTURE 01/31/2012 37247 CBC 01/31/2012 03891 FERRITIN 02/01/2012 39615 TRIC HOMONAS (IN-HOUSE) 07/11/2012 72742 CULT URE UROGENITAL 07/11/2012 74631 GC/C HLAM PROBE ([facility]) 07/11/2012 43934 ROUT INE VENIPUNCTURE 01/09/2014 76618 CBC 01/09/2014 8085734 GF R CALC (RESULT ONLY) 01/09/2014 45740 CMP 01/09/2014 26739 LIPI D PANEL 01/09/2014 70862 TSH 01/09/2014 75625 PREG LORENA TEST, URINE (IN- HOUSE) 03/07/2014 Results Test Result Range TSH w/ FREE T4 - 09/12/18 09:11 TSH 0.81 mIU/L NRG T4, FREE 1.1 ng/dL 0.8-1.8 HCG, QUANTITATIVE - 01/17/19 13:08 HCG, TOTAL, QN 1849 mIU/mL NRG Serum or plasma choriogonadotropin measu rement (units/volume) - 02/11/19 15:17 Serum or plasma choriogonadotropin measurement (units/ volume) 01765 m[iU]/mL <5 SU[employer]PATH PAP RFX HPV mRNA E6/E7 - 14:51 CLINICAL INFORMATION: NRG LMP: NRG PREV. PAP: NRG PREV. BX: NRG SOURCE: Cervix NRG STATEMENT OF ADEQUACY: NRG INTERPRETATION/RESULT: NRG PAINTER AIRBRUSH: NRG COMMENT NRG SYPHILIS (RPR W/ REFLEX CONFIRMATION) - 04/12/19 14:28 RPR (DX) W/REFL TITER AND CONFIRMATORY TESTING NON-REACTIVE NON-REACTIVE HEP B SURFACE ANTIGEN - 04/12/19 14:28 HEPATITIS B SURFACE ANTIGEN NON-REACTIVE NON-REACTIVE RUBELLA IMMUNE STATUS - 04/12/19 14:28 RUBELLA ANTIBODY (IGG) 21.90 index NRG CULTURE, URINE - 04/12/19 14:28 CULTURE, URINE, ROUTINE SEE NOTE NRG Complete blood count (CBC) with automate d white blood cell (WBC) differential - 07/01/19 09:33 Blood leukocytes automated count (number/volume) 10.6 10*3/uL 4.3-11.0 Blood erythrocytes automated count (number/volume) 3.88 10*6/uL 4.35-5.85 Venous blood hemoglobin measurement (mass/volume) 11.7 g/dL 11.5-16.0 Blood hematocrit (volume fraction) 36 % 35-52 Automated erythrocyte mean corpuscular volume 93 [ foz_us] 80-99 Automated erythrocyte mean corpuscular h emoglobin (mass per erythrocyte) 30 pg 25-34 Automated erythrocyte mean corpuscular h emoglobin concentration measurement (mass/volume) 33 g/dL 32-36 Automated erythrocyte distribution width ratio 13. 0 % 10.0- 14.5 Automated blood platelet count (count/volume) 285 10*3/uL 130-400 Automated blood platelet mean volume measurement 9.8 [foz_us] 7.4-10.4 Automated blood neutrophils/100 leukocytes 78 % 42-75 Automated blood lymphocytes/100 leukocytes 17 % 12-44 Blood monocytes/100 leukocytes 4 % 0-12 Automated blood eosinophils/100 leukocytes 0 % 0-10 Automated blood basophils/100 leukocytes 0 % 0-10 Blood neutrophils automated count (number/volume) 8.3 10*3 1.8-7.8 Blood lymphocytes automated count (number/volume) 1.8 10*3 1.0-4.0 Blood monocytes automated count (number/volume) 0. 5 10*3 0.0-1.0 Automated eosinophil count 0.0 10*3/uL 0 .0-0.3 Automated blood basophil count (count/volume) 0.0 10*3/uL 0.0-0.1 GLUC BABITA 1 HR GEST POST GLUCOL - 0 09:33 GLUC BABITA 1 HR GEST POST GLUCOL NRG Serum reagin antibody assay (units/volum e) by RPR - 07/01/19 09:33 Serum reagin antibody assay (units/volume) by RPR Non-Reactive Non-Reactive GLUCOSE RENETTA 3 HR GEST DIAB P - 0 09:34 GLUCOSE RENETTA 3 HR GEST DIAB P NRG Coronavirus SARS-CoV-2 SO 2018 - 0 13:20 Coronavirus Ab [Units/volume] in Serum Negative Negative Capillary blood glucose measurement by g lucometer (mass/volume) - 09/13/19 07:37 Capillary blood glucose measurement by glucometer (mas s/volume) 81 mg/dL 70-110 Encounters ACCT No. Visit Date/Time Discharge Status Pt. Type Provider Facility Loc./Unit Complaint [id number] 05/26/2019 16:30:00 05/26/2019 23:59: 59 CLS Outpatient KIKE RODRIGUEZ [facility] [id number] 04/12/2019 13:40:00 Document Registration [id number] 03/11/2019 14:20:00 Document Registration [id number] 01/17/2019 12:00:00 Document Registration [id number] 09/12/2018 08:45:00 Document Registration [id number] 03/24/2014 08:26:00 03/24/2014 23:59: 59 CLS Outpatient ADEBAYO SANTAMARIA MD [id number] 03/07/2014 09:36:00 03/07/2014 23:59: 59 CLS Outpatient ADEBAYO SANTAMARIA MD [id number] 01/09/2014 08:14:00 01/09/2014 23:59: 59 CLS Outpatient KURTIS CHACON APRN [id number] 01/02/2014 14:56:00 01/02/2014 23:59: 59 CLS Outpatient KURTIS CHACON APRN [id number] 11/13/2013 17:32:00 11/13/2013 23:59: 59 CLS Outpatient VALERIA CUTLER APRN [id number] 08/28/2013 17:35:00 08/28/2013 23:59: 59 CLS Outpatient DAYA QURESHI DO [id number] 08/05/2013 15:52:00 08/05/2013 23:59: 59 CLS Outpatient ADEBAYO SANTAMARIA MD [id number] 07/11/2012 10:25:00 07/11/2012 23:59: 59 CLS Outpatient QURESHI DAYA [id number] 05/01/2012 13:48:00 05/01/2012 23:59: 59 CLS Outpatient [id number] 01/31/2012 08:54:00 01/31/2012 23:59:5 9 CLS Outpatient [id number] 09/11/2019 12:23:00 14:34:00 DIS Outpatient MICHAEL LÓPEZ DO [facility] PREOP REPEAT [id number] 07/17/2019 08:52:00 23:59:59 CLS Outpatient KIKE RODRIGUEZ MD [facility] LAB FS GLUCOSE GESTATIONAL G LUCOSE TOLERANCE 3 HOUR [id number] 07/01/2019 09:24:00 23:59:59 CLS Outpatient KIKE RODRIGUEZ MD [facility] LAB FS SUPERVISION OF OTHER NO RMAL PREG [id number] 05/19/2019 14:26:00 020 15:48:00 DIS Emergency DEMETRIO ORTEGA DO [facility] ER FS RT ARM INJ [id number] 02/11/2019 15:07:00 019 23:59:59 CLS Outpatient MICHAEL LEWIS, KIKE Moon [facility] LAB FS [id number] 09/13/2019 06:59:[address] Inpatient MICHAEL LÓPEZ DO [facility] LDRP REPEAT
[2019-09-13] MEDS ORDERED: LACTATED RINGERS 1,000 ML IV SCH (10:08)
[2019-09-13] MEDS ORDERED: NALOXONE 0.4 MG/ML 1 ML (NARCAN) VIAL IV PRN ×2 (10:15)
[2019-09-13] MEDS ORDERED: METOCLOPRAMIDE INJ 10 MG/2 ML (REGLAN) IV PRN (10:15)
[2019-09-13] MEDS ORDERED: METOCLOPRAMIDE INJ 10 MG/2 ML (REGLAN) IV ONE (10:15)
[2019-09-13] MEDS ORDERED: FAMOTIDINE 20MG/2ML IV (PEPCID) IV ONE (10:15)
[2019-09-13] MEDS ORDERED: ONDANSETRON 4 MG/2 ML (SDV) Z0FRAN IV PRN (10:15)
[2019-09-13] MEDS ORDERED: diphenhydrAMINE 50 MG/ML INJ (BENADRYL) IV PRN (10:15)
[2019-09-13] MEDS ORDERED: CITRIC ACID/SOB CIT (BICITRA) 30 ML UDC PO ONE (10:15)
--- NOTE | 2019-09-13 11:00 | NUR ---
TRANSFERRED TO PP ROOM 307 VIA PT BED ACC BY THIS RN AND SPOUSE. ORIENTED TO SURROUNDINGS, CALL LIGHT OPERATION, MENU AND HOW TO CALL DIETARY, AND INFORMATION PAPERS. FF U/2. VAG FLOW LT/MOD RUBRA. DAVID SCDS ON BILATERALLY. ENCOURAGED INCENTIVE SPIROMETRY Q 2 HOURS W/A.
[2019-09-13] MEDS: HYDROcodone/APAP 5 MG/325 MG (LORTAB) TAB PO PRN ×2 (12:19→19:39)
--- NOTE | 2019-09-13 12:19 | NUR ---
LORTAB 1 TAB P.O. FOR C/O ABD PAIN.
--- NOTE | 2019-09-13 12:30 | NUR ---
FF U/2. VAG FLOW LT/MOD RUBRA. EATING LUNCH.
--- NOTE | 2019-09-13 13:10 | NUR ---
IN ROOM ASSISTING WITH PUMPING.
[2019-09-13] MEDS ORDERED: CATHETER FLUSH 10 ML SYR IV SCH (14:00)
--- NOTE | 2019-09-13 15:00 | NUR ---
UP TO THE BATHROOM WITH ASSISTANCE. VOIDED 100 CC URINE. PERICARE PERFORMED WITH ASSISTANCE. BACK TO SIT IN THE CHAIR. WANTING TO GO SEE . IN NURSERY AND WILL SPEAK WITH PARENTS SOON.
--- NOTE | 2019-09-13 15:30 | NUR ---
TO NURSERY VIA W/C ACC BY THIS RN AND SPOUSE TO SEE .
--- NOTE | 2019-09-13 15:35 | OPERATIVE REPORT ---
DATE OF SERVICE: 09/13/2019 PREOPERATIVE DIAGNOSES: 1. A 29-year-old G4, P1 at 38 weeks and 5 days' gestation. 2. Gestational diabetes White's classification A2. 3. Previous section. POSTOPERATIVE DIAGNOSES: 1. A 29-year-old G4, P1 at 38 weeks and 5 days' gestation. 2. Gestational diabetes White's classification A2. 3. Previous section. PROCEDURE: Repeat low transverse section. SURGEON: James López DO CONVEYOR OPERATOR: Dr. Sierra Thurston who was necessary for manipulation and retraction throughout the procedure. ANESTHESIA: Spinal. ESTIMATED BLOOD LOSS: 300 mL. URINE OUTPUT: 100 mL clear at the end of the procedure. FLUIDS: 1700 mL lactated Ringer's solution. FINDINGS: A live female infant, weight 6 pounds 13 ounces, Apgars were pending. Grossly normal appearing uterus, bilateral fallopian tubes and ovaries. INDICATIONS FOR PROCEDURE: This 29-year-old female patient who is consulted to my office to discuss . I took part of her care due to surveillance and gestational diabetes; however, when we reached 38 weeks we discussed mode of delivery. After reviewing the patient's Abrams score and the risks involved an induction. The patient opted to proceed with repeat . Risk of the procedure was once again reviewed with the patient in detail. All of her questions were answered. Recovery timeframe was discussed and hospital stay were discussed as well. After all of her questions were answered to her satisfaction consent was obtained with her present in the preoperative area and the patient was taken to the operating room. OPERATIVE REPORT IN DETAIL: Once in the operating room, anesthesia was found to be adequate, placed in the supine position with leftward tilt, prepped and draped in normal sterile fashion. Anesthesia was tested and timeout was performed. I then made a Pfannenstiel skin incision through the previously existing scar using knife and carried down to underlying fascia using Bovie cautery. Fascial incision was extended laterally using Bovie cautery. Superior aspect of the fascial incision was then grasped with Meka clamps, tented upward and dissected off the underlying rectus muscles. The inferior aspect of the fascial incision was then grasped with Meka clamps, tented up and dissected off the underlying rectus muscles. The rectus muscle was then dissected down the midline using sharp dissection, which exposed the peritoneum, which I entered bluntly and extended using blunt traction. Loco ring retractor was placed in the peritoneal incision, which offers excellent lateral sidewall retraction. I then identified the lower uterine segment, which was found to be thinned out and made a low transverse incision to the vesicouterine peritoneum and bluntly dissected off the lower uterine segment. I proceeded with my myotomy until membranes were visualized, which fornix extended the uterine incision laterally and superiorly using bandage scissors. Amniotomy was performed in the process of doing this and clear fluid was noted. The was found in vertex presentation. With gentle fundal pressure, the 's head was elevated up the incision where it was delivered through the incision. The nares and oropharynx were then bulb suctioned. Anterior and posterior shoulders were delivered. Infant was then brought to the operative field where the cord was doubly clamped and cut and infant handed off to Dr. Thurston who was present for attendance. Cord blood was collected. Three-vessel cord with intact placenta was delivered spontaneously thereafter. IV Pitocin was initiated to facilitate uterine contraction. Uterine fundus confirmed by manual massage. The uterus was then exteriorized and cleared of all endometrial clots and debris. I then proceeded with closing the uterine incision using 0 Vicryl suture in running locked fashion. Second layer of imbricating 0 Monocryl was placed. Excellent hemostasis was noted after doing this. I then placed the uterus back in the pelvis and copiously irrigated the pelvis using normal saline. Once again, there was no active bleeding noted from any of my dissection planes. I placed Interceed antiadhesive over my low transverse incision. I then proceeded with closing the rectus muscles after I removed the Loco ring retractor. The rectus muscle reapproximated using 3-0 Vicryl suture in interrupted fashion. The fascia was reapproximated using 0 Vicryl suture in running fashion. Subcutaneous tissue is freed up from the underlying fascia allowing for reapproximation of the skin. The skin was then reapproximated using 4-0 Monocryl running subcuticular. Dermabond was applied to the incision and sterile dressing with adhesive white tape. The patient tolerated the procedure well and sent to recovery in stable condition. Lap and sponge counts were correct at the end of the procedure. Instrument counts correct as well. One gram of Ancef given preoperatively for infection prophylaxis. Job ID: [id number] DocumentID: [id number] Dictated Date: 09/13/2019 09:57:04 Assembly Associate Date: 09/13/2019 15:34:31 Dictated By: JAMES LÓPEZ DO
[2019-09-13] MEDS: KETOROLAC 30 MG/ML VIAL IV SCH ×2 (15:48→21:59)
--- NOTE | 2019-09-13 16:30 | NUR ---
CHECK ON PT IN NURSERY. DENIES URGE TO VOID YET. INFORMED TO ALERT RN WHEN NEEDS TO VOID AND RETURN TO ROOM.
--- NOTE | 2019-09-13 17:30 | NUR ---
Mom returned back to her room from nursery via wheel chair. at side. Pt to BR voided without difficulty. To bed. no c/o. call light within reach. No concerns voiced at this time.
--- NOTE | 2019-09-13 18:45 | NUR ---
RESTING IN BED. DENIES NEED FOR PAIN MEDS AT THIS TIME. ENCOURAGED TO LET RN KNOW WHEN NEEDS MEDICATION.
[2019-09-13] MEDS: DOCUSATE SODIUM 100 MG (COLACE) CAP PO SCH (19:39)
[2019-09-14 03:18] VITALS: BP 127/80
[2019-09-14] MEDS: KETOROLAC 30 MG/ML VIAL IV SCH (03:18)
[2019-09-14 05:44] LABS: BASOPHILS % (AUTO) 0 % (0-10); EOSINOPHILS # (AUTO) 0.1 10^3/uL (0.0-0.3); EOSINOPHILS % (AUTO) 1 % (0-10); HEMATOCRIT 30 % (35-52); HEMOGLOBIN 9.9 G/DL (11.5-16.0); LYMPHOCYTES # (AUTO) 1.4 X 10^3 (1.0-4.0); LYMPHOCYTES % (AUTO) 13 % (12-44); MEAN CORPUSCULAR HEMOGLOBIN 30 PG (25-34); MEAN CORPUSCULAR HGB CONC 33 G/DL (32-36); MEAN CORPUSCULAR VOLUME 91 FL (80-99); MONOCYTES # (AUTO) 0.8 X 10^3 (0.0-1.0); MONOCYTES % (AUTO) 7 % (0-12); NEUTROPHILS # (AUTO) 8.7 X 10^3 (1.8-7.8); NEUTROPHILS % (AUTO) 79 % (42-75); PLATELET COUNT 182 10^3/uL (130-400); RED CELL DISTRIBUTION WIDTH 14.3 % (10.0-14.5); WHITE BLOOD COUNT 11.1 10^3/uL (4.3-11.0)
[2019-09-14 06:20] VITALS: BP 136/83
[2019-09-14 07:20] VITALS: BP 130/73
[2019-09-14] MEDS: IBUPROFEN 600 MG (MOTRIN) TAB PO SCH ×3 (09:31→20:12)
[2019-09-14] MEDS: DOCUSATE SODIUM 100 MG (COLACE) CAP PO SCH ×2 (09:32→20:12)
--- NOTE | 2019-09-14 09:36 | Anesthesia-Regional Post-Op ---
Regional Patient Condition Mental Status: Alert, Oriented x3 Circulation: Same as Pre-Op Headache: Absent Sensation: Full Recovery Motor Block: Absent Post Op Complications Complications None Follow Up Care/Instructions Patient Instructions None needed. Anesthesia/Patient Condition Patient is doing well, no complaints, stable vital signs, no apparent adverse anesthesia problems. No complications reported per nursing. EMI HANLEY CRNA September 14, 2019 09:36
--- NOTE | 2019-09-14 10:00 | NUR ---
2 hr pp sugar 104. Pt tearful - baby in nursery on vapo-therm. Dad in to see several times this morning. Pt will go to nursery after she sees Dr Lopez.
[2019-09-14] MEDS: HYDROcodone/APAP 5 MG/325 MG (LORTAB) TAB PO PRN ×3 (10:32→23:49)
[2019-09-14 11:00] VITALS: BP 140/65
--- NOTE | 2019-09-14 11:30 | Postpartum Progress Note ---
Post Op Post-operative Day #1 s/p RLTCS Done at 38 5/7 weeks repeat CS by Dr. Lopez. GDM A2 on metformin. Fasting BG not done but 2 hour pp 104 this morning. Baby on Vapotherm. Patient quite teary today per RN. Subjective: Patient is without complaints. Ambulating, voiding after jones removed. Tolerating a regular diet without nausea or vomiting. Normal lochia. Pain is well controlled with oral pain medications. Passing flatus. breast feeding. states baby will be off vapotherm now. Objective: Laboratory Tests Test 09/14/19 04:55 09/14/19 10:01 Range/Units White Blood Count 11.1 H 4.3-11.0 10^3/uL Red Blood Count 3.26 L 4.35-5.85 10^6/uL Hemoglobin 9.9 #L 11.5-16.0 G/DL Hematocrit 30 L 35-52 % Mean Corpuscular Volume 91 80-99 FL Mean Corpuscular Hemoglobin 30 25-34 PG Mean Corpuscular Hemoglobin Concent 33 32-36 G/DL Red Cell Distribution Width 14.3 10.0-14.5 % Platelet Count 182 130-400 10^3/uL Mean Platelet Volume 11.0 H 7.4-10.4 FL Neutrophils (%) (Auto) 79 H 42-75 % Lymphocytes (%) (Auto) 13 12-44 % Monocytes (%) (Auto) 7 0-12 % Eosinophils (%) (Auto) 1 0-10 % Basophils (%) (Auto) 0 0-10 % Neutrophils # (Auto) 8.7 H 1.8-7.8 X 10^3 Lymphocytes # (Auto) 1.4 1.0-4.0 X 10^3 Monocytes # (Auto) 0.8 0.0-1.0 X 10^3 Eosinophils # (Auto) 0.1 0.0-0.3 10^3/uL Basophils # (Auto) 0.0 0.0-0.1 10^3/uL Glucometer 104 70-110 MG/DL Vital Sign - Last 24 Hours 09/13/19 09/13/19 09/13/19 09/13/19 11:40 12:22 15:30 18:15 Temp 36.9 36.5 37.0 36.7 Pulse 55 67 66 67 Resp 16 16 18 18 B/P (MAP) 139/83 (101) 134/78 (96) 129/75 (93) 144/80 (101) Pulse Ox 99 100 98 100 O2 Delivery Room Air Room Air Room Air Room Air 09/13/19 09/14/19 09/14/19 09/14/19 19:25 03:18 06:20 07:20 Temp 37.1 37.3 36.8 37.1 Pulse 72 62 69 75 Resp 18 18 18 16 B/P (MAP) 127/86 (100) 127/80 (96) 136/83 (100) 130/73 (92) Pulse Ox 99 98 99 98 O2 Delivery Room Air Room Air Room Air Room Air Intake and Output 09/13/19 09/13/19 09/14/19 15:00 23:00 07:00 Intake Total 2510 ml 1290 ml Output Total 100 ml 500 ml Balance 2410 ml 790 ml Physical Exam: General - Alert and oriented, no apparent distress Abdomen - Soft, appropriately tender to palpation, non-distended, fundus firm at umbilicus Incision - clean, dry and intact; no erythema or induration, no drainage Extremities - no edema, negative Olegario's bilaterally Assessment: 1. post-operative day # 1, status post RLTCS. Recovering well, hemodynamically stable 2. GDMA2 3. Acute blood loss anemia 4. h/o depression - restart home zoloft Plan: Routine post-operative care. Encourage breast feeding. Encourage ambulation. VTE prophylaxis: SCDs. Ferrous sulfate supplementation. Plan for discharge tomorrow Vitals - Labs Vital Signs - I&O Vital Signs Date Time Temp Pulse Resp B/P (MAP) Pulse Ox O2 Delivery O2 Flow Rate FiO2 09/14/19 07:20 37.1 75 16 130/73 (92) 98 Room Air 09/14/19 06:20 36.8 69 18 136/83 (100) 99 Room Air 09/14/19 03:18 37.3 62 18 127/80 (96) 98 Room Air 09/13/19 19:25 37.1 72 18 127/86 (100) 99 Room Air 09/13/19 18:15 36.7 67 18 144/80 (101) 100 Room Air 09/13/19 15:30 37.0 66 18 129/75 (93) 98 Room Air 09/13/19 12:22 36.5 67 16 134/78 (96) 100 Room Air 09/13/19 11:40 36.9 55 16 139/83 (101) 99 Room Air I & O 09/14/19 07:00 Intake Total 3800 ml Output Total 600 ml Balance 3200 ml Labs Laboratory Tests 09/14/19 04:55: White Blood Count 11.1H, Red Blood Count 3.26L, Hemoglobin 9.9#L, Hematocrit 30L , Mean Corpuscular Volume 91, Mean Corpuscular Hemoglobin 30, Mean Corpuscular Hemoglobin Concent 33, Red Cell Distribution Width 14.3, Platelet Count 182, Mean Platelet Volume 11.0H, Neutrophils (%) (Auto) 79H, Lymphocytes (%) (Auto) 13, Monocytes (%) (Auto) 7, Eosinophils (%) (Auto) 1, Basophils (%) (Auto) 0, Neutrophils # (Auto) 8.7H, Lymphocytes # (Auto) 1.4, Monocytes # (Auto) 0.8, Eosinophils # (Auto) 0.1, Basophils # (Auto) 0.0 09/14/19 10:01: Glucometer 104 Microbiology 09/13/19 MRSA Screen - Final, Complete MRSA not isolated JACKIE SAEED DO September 14, 2019 11:30
--- NOTE | 2019-09-14 18:33 | NUR ---
Baby in room with mom. Pt pumping breasts. Pt passing some flatus. More cheerful since in room.
--- NOTE | 2019-09-14 20:30 | NUR ---
pt resting in chair. Assessment completed. pt c/o abdominal pain. abdominal binder applied. pt reports relief. pt denies any further needs at this time.
[2019-09-14 20:59] VITALS: BP 136/76
[2019-09-15 01:53] VITALS: BP 137/87
[2019-09-15] MEDS: IBUPROFEN 600 MG (MOTRIN) TAB PO SCH ×3 (03:33→15:20)
[2019-09-15] MEDS: DOCUSATE SODIUM 100 MG (COLACE) CAP PO SCH (09:15)
[2019-09-15 09:16] VITALS: BP 142/85
--- NOTE | 2019-09-15 09:20 | NUR ---
THIS RN TO ROOM, SELF INTRODUCED. PT UP IN ROOM, CHANGING CLOTHES. PT TO CHAIR. MEDS GIVEN PO; SEE EMAR FOR FURTHER. VS OBTAINED. INITIAL SHIFT ASSESSMENT COMPLETED; SEE INTERVENTION FOR FURTHER. WILL CHECK INCISION AND FUNDUS WHEN PT IS LAYING DOWN.
--- NOTE | 2019-09-15 09:45 | NUR ---
DR. SAEED TO PT'S BEDSIDE.
--- NOTE | 2019-09-15 09:46 | Postpartum Progress Note ---
Post Op Post-operative Day #2 s/p RLTCS Subjective: Patient is without complaints. Ambulating, voiding after jones removed. Tolerating a regular diet without nausea or vomiting. Normal lochia. Pain is well controlled with oral pain medications. Passing flatus. breast feeding. Occasional elevated blood sugars, occasional elevated blood pressures. Objective: 09/15/19 09/15/19 01:53 09:16 Temp 36.8 37.3 Pulse 67 80 Resp 16 16 B/P (MAP) 137/87 (104) 142/85 (104) Pulse Ox 98 98 O2 Delivery Room Air Laboratory Tests Test 09/14/19 10:01 09/14/19 15:39 09/14/19 20:23 09/15/19 06:20 Range/Units Glucometer 104 165 H 124 H 79 70-110 MG/DL Physical Exam: General - Alert and oriented, no apparent distress Abdomen - Soft, appropriately tender to palpation, non-distended, fundus firm at umbilicus Incision - clean, dry and intact; no erythema or induration, no drainage Extremities - no edema, negative Olegario's bilaterally Assessment: 1.post-operative day # 2, status post RLTCS. Recovering well, hemodynamically stable 2. Acute blood loss anemia - on iron 3. GDM A2 - 2 hour glucola at 6 week pp exam Plan: Routine post-operative care. Encourage breast feeding. Encourage ambulation. VTE prophylaxis: SCDs. Ferrous sulfate supplementation. Plan for discharge today unless baby is not discharged. Will DC tomorrow if baby is not DC Vitals - Labs Vital Signs - I&O Vital Signs Date Time Temp Pulse Resp B/P (MAP) Pulse Ox O2 Delivery O2 Flow Rate FiO2 09/15/19 09:16 37.3 80 16 142/85 (104) 98 Room Air 09/15/19 01:53 36.8 67 16 137/87 (104) 98 09/14/19 20:59 36.8 62 16 136/76 (96) 98 09/14/19 11:00 36.7 76 16 140/65 (90) 98 Labs Laboratory Tests 09/14/19 10:01: Glucometer 104 09/14/19 15:39: Glucometer 165H 09/14/19 20:23: Glucometer 124H 09/15/19 06:20: Glucometer 79 Microbiology 09/13/19 MRSA Screen - Final, Complete MRSA not isolated JACKIE SAEED DO September 15, 2019 09:46
--- NOTE | 2019-09-15 12:55 | NUR ---
PT UP IN ROOM, TALKING ON HER PHONE. NO NEEDS VOICED.
[2019-09-15 15:18] VITALS: BP 128/82
--- NOTE | 2019-09-15 15:20 | NUR ---
PT IN BED, HOLDING , WATCHING TV. VS OBTAINED. MOTRIN GIVEN PO; SEE EMAR FOR FURTHER. INCISION CHIEF OF HARBOR PATROL, LT RUBRA LOCHIA NOTED. NO NEEDS VOICED.
--- NOTE | 2019-09-15 17:20 | NUR ---
DR. SAEED NOTIFIED OF BEING DISCHARGED, TO PROCEED WITH PT DISCHARGE.
--- NOTE | 2019-09-15 17:27 | NUR ---
DISCHARGE PAPERS PROVIDED AND REVIEWED WITH PT, PT VERBALIZES UNDERSTANDING AND DENIES ANY NEEDS OR QUESTIONS AT THIS TIME. FOLLOW UP APPOINTMENT AND RX'S ALSO PROVIDED AT THIS TIME. PAPER SIGNED.
[2019-09-15] MEDS: HYDROcodone/APAP 5 MG/325 MG (LORTAB) TAB PO PRN (18:10)
--- NOTE | 2019-09-15 18:20 | NUR ---
PT DISCHARGED FROM -[facility] TO [facility] AMBULATORY IN STABLE CONDITION ACC BY S/O AND Guillermina ONOFRE RN.
== END 2019-09-15 18:20 | disposition home or self-care (01) | DRG 787 ==
LOC: LDRP 06:59
PROVIDERS: ADMIT Obstetrics & Gynecology; ATTEND Obstetrics & Gynecology
PROC: 10D00Z1 Extraction of Products of Conception, Low, Open Approach (ICD-10-PCS; principal; 2019-09-13 08:45)
DX: O34.211 Maternal care for low transverse scar from previous cesarean delivery (principal); O90.81 Anemia of the puerperium; D62 Acute posthemorrhagic anemia; O24.415 Gestational diabetes mellitus in pregnancy, controlled by oral hypoglycemic drugs; O99.344 Other mental disorders complicating childbirth; F32.9 Major depressive disorder, single episode, unspecified; Z79.84 Long term (current) use of oral hypoglycemic drugs; Z3A.38 38 weeks gestation of pregnancy; Z37.0 Single live birth
CPT/HCPCS: 36415; 82962; 85025; 86850; 86900; 86901; 87081

== ENCOUNTER → 2020-09-16 | Outpatient (CLI) | payer BC, MEDICAID ==
[~2020-09-16] MED LIST changes: +ACHD5005 PO; -CETI10TA21 PO; +CETI10TA49 PO; +DCS100C PO; +IBUP-844 PO; -MONT10TA26 PO; +MONT10TA32 PO; +SERT-413 PO; -SERT50TA9 PO
== END ==
LOC: LABNPT 14:38
PROVIDERS: ATTEND Family Medicine
DX: Z01.419 Encounter for gynecological examination (general) (routine) without abnormal findings (principal)
CPT/HCPCS: 87210

== ENCOUNTER → 2020-10-09 | Outpatient (CLI) | payer BC, MEDICAID ==
[2020-10-09 11:52] LABS: BACTERIA,URINE NEGATIVE /HPF; BILIRUBIN,URINE NEGATIVE (NEGATIVE); CLARITY,URINE CLEAR; COLOR,URINE YELLOW; GLUCOSE, URINE (UA) NEGATIVE (NEGATIVE); KETONES,URINE NEGATIVE (NEGATIVE); LEUKOCYTE ESTERASE ,URINE NEGATIVE (NEGATIVE); NITRITE,URINE NEGATIVE (NEGATIVE); PROTEIN,URINE NEGATIVE (NEGATIVE); SQUAMOUS EPITHELIAL CELL,UR 0-2 /HPF; WBC,URINE 0-2 /HPF
== END ==
LOC: LAB FS 09:55
PROVIDERS: ATTEND Family Medicine
DX: R30.9 Painful micturition, unspecified (principal)
CPT/HCPCS: 81000